=== PATIENT | male | born 1935 | race Caucasian/White ===

== ENCOUNTER 2018-10-20 11:00 | Outpatient (RCR) | payer MEDICARE, OTHER, SELFPAY ==
[2018-09-29 10:53] VITALS: BP 99/57; PULSE 57; RESP 20; TEMP 36.3; BMI 33.7
--- NOTE | 2018-09-29 12:31 | PCM.WC.HP ---
(1) Open wound of left knee Status: Acute Current Visit: Yes Code(s): S81.002A - Unspecified open wound, left knee, initial encounter (2) Wound of left leg Status: Acute Current Visit: Yes Code(s): S81.802A - Unspecified open wound, left lower leg, initial encounter (3) Open wound of left ankle Status: Acute Current Visit: Yes Code(s): S91.002A - Unspecified open wound, left ankle, initial encounter (4) Superficial burn Status: Acute Current Visit: Yes Code(s): T30.0 - Burn of unspecified body region, unspecified degree (5) Bilateral lower extremity edema Status: Chronic Current Visit: Yes Code(s): R60.0 - Localized edema (6) CHF (congestive heart failure) Status: Chronic Current Visit: Yes Code(s): I50.9 - Heart failure, unspecified (7) Peripheral vascular disease Status: Acute Current Visit: Yes Code(s): I73.9 - Peripheral vascular disease, unspecified History of Present Illness Date of Service: 09/29/18 Chief Complaint: Wounds on left lower extremity caused from spilling hot water down leg. History of Wound: Three weeks ago patient spilled hot water down his left leg. He lives in an assisted living facility, [facility], that he needs to do his own wound care. [facility] but according to the aid who is with the patient she states the patient has done nothing to the wounds. His PCP saw him on 09/22/18 who referred him to the wound clinic. Patient does have a significant history of CHF and has +3-+4 pitting edema of bilateral lower extremities. Past Medical History Past Medical History: Chronic Problems CHF (congestive heart failure) (Chronic) Bilateral lower extremity edema (Chronic) Past Medical History: Hyperlipidemia, hypothyroidism, generalized seizure disorder, cardiomyopathy, HTN, CAD, adenocarcinoma, colon, DVT, lower extremity edema Allergies/Adverse Reactions: Allergies shellfish derived Allergy (Verified 11/03/13 11:27) Anaphylaxis Home Medications: Ambulatory Orders Medication Instructions Recorded Amiodarone HCl 200 mg PO DAILY 11/03/13 Aspirin E.C. [Ecotrin] 81 mg PO DAILY@0800 11/03/13 Furosemide [Lasix] 40 mg PO DAILY 11/03/13 Levetiracetam 500 mg PO BID 11/03/13 Lisinopril [Zestril] 5 mg PO DAILY 11/03/13 Oxcarbazepine [Trileptal] 600 mg PO BID 11/03/13 Ropinirole HCl [Requip] 0.25 mg PO QHS 11/03/13 Spironolactone [Aldactone] 12.5 mg PO DAILY 11/03/13 Tamsulosin HCl [Flomax] 0.4 mg PO DAILY 11/03/13 L. Acidophilus/Pectin, [place] 1 each PO BID #10 tablet 11/19/13 [Acidophilus-Pectin [place]] Acetaminophen [Tylenol Extra 1,000 mg PO Q6H PRN PRN 09/29/18 Strength] Brimonidine Tartrate 0.2% 1 drop EACH EYE BID 09/29/18 [Brimonidine 0.2% 5Ml Bottle] Cholecalciferol (Vitamin D3) 2,000 unit PO DAILY 09/29/18 [Vitamin D3] Ferrous Sulfate 325 mg PO DAILY 09/29/18 Fluticasone 0.05% [Flonase Nasal 2 spray NASAL DAILY 09/29/18 [place]] Furosemide [Lasix] 20 mg PO DINNER 09/29/18 Gabapentin [Neurontin] 300 mg PO TIDCM 09/29/18 Gluc/Chondr-MSM 7/C/[place] 1 each PO DAILY 09/29/18 [Eql Glucosam-Chondro Complx Tb] Latanoprost 0.005% [Xalatan 1 drop EACH EYE QHS 09/29/18 Opthalmic] Levothyroxine [Synthroid] 75 mcg PO DAILY 09/29/18 Metoprolol Tartrate 12.5 mg PO DAILY 09/29/18 Potassium Chloride [K-Dur] 20 meq PO DAILY 09/29/18 Psyllium [Metamucil] 1 packet PO DAILY 09/29/18 Rivaroxaban [Xarelto] 20 mg PO DAILY 09/29/18 Timolol 0.5% [Timoptic] 1 drop EACH EYE BID 09/29/18 Lives: [facility] - assisted living Smoking Status: Never smoker Tobacco Use: Non-smoker Alcohol: None Drugs: None Review of Systems Constitutional: Denies: Anorexia, Chills, Fever Eyes: Denies: Pain, Vision Change HEENT: Denies: Difficulty Hearing, Difficulty Swallowing, Sinus Congestion Cardiovascular: Reports: Edema. Denies: Chest Pain Respiratory: Reports: Cough. Denies: Shortness of Breath Gastrointestinal: Denies: Diarrhea, Nausea, Vomiting Genitourinary: Denies: Dysuria, Hematuria Musculoskeletal: Denies: Joint stiffness, Joint swelling, Joint Tenderness Skin: Reports: Lesions - Left knee, left anterior lower leg and left ankle wounds caused by spilling hot water down his leg Neurological: Reports: Seizures Psychiatric: Denies: Anxiety Endocrine: Denies: Heat/ Cold Intolerance, Polydipsia, Polyuria Hematologic/ Lymphatic: Reports: Easy Bruising - on Xarelto for DVTs, Easy Bleeding - Physical Exam Vital Signs Temp Pulse Resp BP 97.3 F L 57 L 20 H 99/57 L 09/29/18 10:53 09/29/18 10:53 09/29/18 10:53 09/29/18 10:53 General: Alert, Oriented x3 HEENT: Atraumatic, PERRLA Oral: Moist Mucosa Lungs: No wheeze, - - moist cough Cardiovascular: Regular rate, Regular Rhythm Abdomen: Bowel Sounds Present, Soft, Obese Extremities: Capillary Refill Less than 3 Seconds, Diminished Peripheral Pulses, Edema - +3-+4 pitting edema Skin: Ulcer/ Wound - left knee, left anterior lower leg and left ankle wounds, - - Bilateral lower legs with brown discoloration of skin Wound Measurements and Assessment WC - Nurse 1 - General Ulcer Measurement Start: 09/29/18 10:53 Freq: Status: Active Protocol: Activity Type Activity Date Activity User E-Sign Co-Sign Detail Recorded Client Recorded Date Recorded By Document 09/29/18 10:53 [id number] 09/29/18 11:08 DL 09/29/18 10:53 Wound Center Nurse 1 [Ulcer Assessment] #3 L ANt ankle -Current Size (cm) - Length 2.2 -Current Size (cm) - Width 3.4 -Current Size (cm) - Depth 0.1 -Total Square Cm 7.48 -Photo Taken Yes -Classification - Thickness Unclassifiable (Eschar Covered ) -Exudate Amt None Present -Wound Margin Thickened -Granulation Amt None Present (0 %) -Necrosis Amt Large (67-100%) -Necrotic Tissue Type Eschar -Structure Exposed N/A -Texture (Mer-wound Skin Appearance) Localized Edema Scarring -Moisture (Mer-wound Skin Appearance Dry/Scaly ) -Color (Mer-wound Skin Appearance) Erythema Hemosiderin Staining -Temperature (Mer-wound Skin No Abnormality Appearance) (Pt Warm) -Tenderness on Palpation (Mer-wound No Skin Appearance) -Ulcer Cleansing Wound Cleanser -Foul Odor after Cleansing No -Anesthetic Used 4% Lidocaine Solution #2 L Evans -Current Size (cm) - Length 3.2 -Current Size (cm) - Width 1.1 -Current Size (cm) - Depth 0.1 -Total Square Cm 3.52 -Photo Taken Yes -Classification - Thickness Full Thickness without Exposed Support Structure -Exudate Amt Small -Exudate Type Serosanguineous -Wound Margin Distinct, Outline Attached -Granulation Amt Medium (34-66%) -Granulation Quality Hyper- granulation Red -Necrosis Amt Medium (34-66%) -Necrotic Tissue Type Adherent Slough -Structure Exposed N/A -Texture (Mer-wound Skin Appearance) Localized Edema Scarring -Moisture (Mer-wound Skin Appearance Dry/Scaly ) -Color (Mer-wound Skin Appearance) Erythema Hemosiderin Staining -Temperature (Mer-wound Skin No Abnormality Appearance) (Pt Warm) -Tenderness on Palpation (Mer-wound No Skin Appearance) -Ulcer Cleansing Wound Cleanser -Foul Odor after Cleansing No -Anesthetic Used 4% Lidocaine Solution #1 L Knee -Current Size (cm) - Length 4.4 -Current Size (cm) - Width 2 -Current Size (cm) - Depth 0.1 -Total Square Cm 8.8 -Photo Taken Yes -Classification - Thickness Full Thickness without Exposed Support Structure -Exudate Amt None Present -Wound Margin Distinct, Outline Attached -Granulation Amt Medium (34-66%) -Granulation Quality Red -Necrosis Amt Medium (34-66%) -Necrotic Tissue Type Adherent Slough -Structure Exposed N/A -Texture (Mer-wound Skin Appearance) Localized Edema Scarring -Moisture (Mer-wound Skin Appearance Dry/Scaly ) -Color (Mer-wound Skin Appearance) Erythema Hemosiderin Staining -Temperature (Mer-wound Skin No Abnormality Appearance) (Pt Warm) -Tenderness on Palpation (Mer-wound No Skin Appearance) -Ulcer Cleansing Wound Cleanser -Foul Odor after Cleansing No -Anesthetic Used 4% Lidocaine Solution [Edema Assessment] -Right Calf (cm) 39.9 -Right Ankle (cm) 31.4 -Left Calf (cm) 46.5 -Left Ankle (cm) 31.5 WC - Nurse 2 - General Ulcer CM Notes Start: 09/29/18 10:53 Freq: Status: Active Protocol: Activity Type Activity Date Activity User E-Sign Co-Sign Detail Recorded Client Recorded Date Recorded By Document 09/29/18 11:49 [email or web address] [id number] 09/29/18 11:59 RUPINDER 09/29/18 11:49 Wound Center Nurse 2 [Procedure/Treatment] #3 L ANt ankle -Time 11:55 -Correct Patient Yes -Correct Side, Site, Position Yes -Correct Procedure Yes -Procedure Performed Yes -Type of Procedure Debridement -Clinical Debridement Subcutaneous -Post Debridement Size (cm) - Length 2.4 -Post Debridement Size (cm) - Width 3.5 -Post Debridement Size (cm) - Depth 0.2 -Total Square Cm 8.40 -Wound/Ulcer Outcome Not Healed -Ulcer Cleansing Rinsed/ Irrigated with Saline -Foul Odor after Cleansing No -Bioengineered Tissue No -Bleeding Controlled with Pressure -Offloading No -Treatment Response Procedure Tolerated Well #2 L Evans -Time 11:53 -Correct Patient Yes -Correct Side, Site, Position Yes -Correct Procedure Yes -Procedure Performed Yes -Type of Procedure Debridement -Clinical Debridement Subcutaneous -Post Debridement Size (cm) - Length 3.3 -Post Debridement Size (cm) - Width 1.7 -Post Debridement Size (cm) - Depth 0.1 -Total Square Cm 5.61 -Wound/Ulcer Outcome Not Healed -Ulcer Cleansing Rinsed/ Irrigated with Saline -Foul Odor after Cleansing No -Bioengineered Tissue No -Bleeding Controlled with Pressure -Offloading No -Treatment Response Procedure Tolerated Well #1 L Knee -Time 11:55 -Correct Patient Yes -Correct Side, Site, Position Yes -Correct Procedure Yes -Procedure Performed Yes -Type of Procedure Debridement -Clinical Debridement Subcutaneous -Post Debridement Size (cm) - Length 5.0 -Post Debridement Size (cm) - Width 2.3 -Post Debridement Size (cm) - Depth 0.1 -Total Square Cm 11.50 -Wound/Ulcer Outcome Not Healed -Ulcer Cleansing Rinsed/ Irrigated with Saline -Foul Odor after Cleansing No -Bioengineered Tissue No -Bleeding Controlled with Pressure -Offloading No -Treatment Response Procedure Tolerated Well [See Physician Procedure note for Specifics] Pain Scale: 0-10 Numeric [Pain] -Is Patient Pain Free? Yes Musculoskeletal: No Tenderness to Palpation of Joints or Extremities Neurological: Neuro grossly intact Psych/Mental Status: Normal Affect, Appropriate Debridement Note Post-Debridement Measurements/Treatment WC - Nurse 2 - General Ulcer CM Notes Start: 09/29/18 10:53 Freq: Status: Active Protocol: Activity Type Activity Date Activity User E-Sign Co-Sign Detail Recorded Client Recorded Date Recorded By Document 09/29/18 11:49 [id number] 09/29/18 11:59 RUPINDER 09/29/18 11:49 Wound Center Nurse 2 #3 L ANt ankle -Time 11:55 -Correct Patient Yes -Correct Side, Site, Position Yes -Correct Procedure Yes -Procedure Performed Yes -Type of Procedure Debridement -Clinical Debridement Subcutaneous -Post Debridement Size (cm) - Length 2.4 -Post Debridement Size (cm) - Width 3.5 -Post Debridement Size (cm) - Depth 0.2 -Total Square Cm 8.40 -Wound/Ulcer Outcome Not Healed -Ulcer Cleansing Rinsed/ Irrigated with Saline -Foul Odor after Cleansing No -Bioengineered Tissue No -Bleeding Controlled with Pressure -Offloading No -Treatment Response Procedure Tolerated Well #2 L Evans -Time 11:53 -Correct Patient Yes -Correct Side, Site, Position Yes -Correct Procedure Yes -Procedure Performed Yes -Type of Procedure Debridement -Clinical Debridement Subcutaneous -Post Debridement Size (cm) - Length 3.3 -Post Debridement Size (cm) - Width 1.7 -Post Debridement Size (cm) - Depth 0.1 -Total Square Cm 5.61 -Wound/Ulcer Outcome Not Healed -Ulcer Cleansing Rinsed/ Irrigated with Saline -Foul Odor after Cleansing No -Bioengineered Tissue No -Bleeding Controlled with Pressure -Offloading No -Treatment Response Procedure Tolerated Well #1 L Knee -Time 11:55 -Correct Patient Yes -Correct Side, Site, Position Yes -Correct Procedure Yes -Procedure Performed Yes -Type of Procedure Debridement -Clinical Debridement Subcutaneous -Post Debridement Size (cm) - Length 5.0 -Post Debridement Size (cm) - Width 2.3 -Post Debridement Size (cm) - Depth 0.1 -Total Square Cm 11.50 -Wound/Ulcer Outcome Not Healed -Ulcer Cleansing Rinsed/ Irrigated with Saline -Foul Odor after Cleansing No -Bioengineered Tissue No -Bleeding Controlled with Pressure -Offloading No -Treatment Response Procedure Tolerated Well Pain Scale: 0-10 Numeric Is Patient Pain Free? Yes Wound debrided: Left knee Laterality: Left Type of Debridement: Excisional debridement Anesthesia Used: 5% Lidocaine Gel Depth: Down to and including healthy tissue, in the subcutaneous layer Percentage of wound debrided: 100 Instrument Used: 5mm curette Tissue Removed: Subcutaneous tissue and slough Severity: Fat Layer Exposed Amount of bleeding with debridement: Mild Bleeding Controlled with: Pressure Patient tolerated procedure well - Additional Wound Wound debrided: Left anterior lower leg Laterality: Left Type of Debridement: Excisional debridement Anesthesia Used: 5% Lidocaine Gel Depth: Down to and including healthy tissue, in the subcutaneous layer Percentage of wound debrided: 100 Instrument Used: 5mm curette Tissue Removed: Slough and biofilm- large amount of hypergranulation tissue Severity: Fat Layer Exposed Amount of bleeding with debridement: Mild Bleeding Controlled with: Pressure Patient tolerated procedure: Patient tolerated procedure well - Additional Wound Wound debrided: Left ankle Laterality: Left Type of Debridement: Excisional debridement Anesthesia Used: 5% Lidocaine Gel Depth: Down to and including healthy tissue, in the subcutaneous layer Percentage of wound debrided: 100 Instrument Used: 5mm curette Tissue Removed: Subcutaneous tissue and slough- significant amount of eschar Severity: Limited To Skin Breakdown Amount of bleeding with debridement: Mild Bleeding Controlled with: Pressure Patient tolerated procedure: Patient tolerated procedure well Assessment/Plan Active Problems Open wound of left knee (Acute) Wound of left leg (Acute) Open wound of left ankle (Acute) CHF (congestive heart failure) (Chronic) Peripheral vascular disease (Acute) Bilateral lower extremity edema (Chronic) Superficial burn (Acute) Assessment: 1. Open wound of left ankle. 2. Open wound of left knee. 3. Wound of left leg. 4. Superficial burn. 5. CHF (congestive heart failure). 6. Bilateral lower extremity edema. 7. Peripheral vascular disease Plan: Patient was seen and evaluated in the wound center today. He had a subcutaneous debridement of his three wounds today and tolerated the proceedure well. The ankle wound has a significant amount of eschar that is not able to be debrided. He has hypergranulation to the left lower leg. Will order santyl to all the wounds daily. Patient lives in an assisted living and they have home health who can assist the patient with his wounds. Will order both venous and arterial studies. Will apply one layer of tubigrip to help with edema until vascular study results are seen. Patient has significant amount of +4 pitting edema. He states he does sit all day with feet dangling. Instructed him that he needs to elevate feet at least twice a day for 30 minutes at time. Also encouraged patient to cut back on his sodium intake. Since he lives in assisted living, he does not have control over his diet. Will also obtain a wound culture of the left knee open area since there is redness and swelling surrounding this area. He will follow up in one week. Code Visit Office Visits / Consults: [id number] OV L4 Est - modifier 25 [id number]: [id number] Huong subq tissue 20 sq cm/< Add On Codes: 45264 Huong subq tissue add-on - x1
--- NOTE | 2018-09-29 12:35 | HP.PCM_ITS ---
(1) Open wound of left knee Status: Acute Current Visit: Yes Code(s): S81.002A - Unspecified open wound, left knee, initial encounter (2) Wound of left leg Status: Acute Current Visit: Yes Code(s): S81.802A - Unspecified open wound, left lower leg, initial encounter (3) Open wound of left ankle Status: Acute Current Visit: Yes Code(s): S91.002A - Unspecified open wound, left ankle, initial encounter (4) Superficial burn Status: Acute Current Visit: Yes Code(s): T30.0 - Burn of unspecified body region, unspecified degree (5) Bilateral lower extremity edema Status: Chronic Current Visit: Yes Code(s): R60.0 - Localized edema (6) CHF (congestive heart failure) Status: Chronic Current Visit: Yes Code(s): I50.9 - Heart failure, unspecified (7) Peripheral vascular disease Status: Acute Current Visit: Yes Code(s): I73.9 - Peripheral vascular disease, unspecified History of Present Illness Date of Service: 09/29/18 Chief Complaint: Wounds on left lower extremity caused from spilling hot water down leg. History of Wound: Three weeks ago patient spilled hot water down his left leg. He lives in an assisted living facility, [place], that he needs to do his own wound care. His PCP phoned in [facility] on 09/15 but according to the aid who is with the patient she states the patient has done nothing to the wounds. His PCP saw him on 09/22/18 who referred him to the wound clinic. Patient does have a significant history of CHF and has +3-+4 pitting edema of bilateral lower extremities. Past Medical History Past Medical History: Chronic Problems CHF (congestive heart failure) (Chronic) Bilateral lower extremity edema (Chronic) Past Medical History: Hyperlipidemia, hypothyroidism, generalized seizure disorder, cardiomyopathy, HTN, CAD, adenocarcinoma, colon, DVT, lower extremity edema Allergies/Adverse Reactions: Allergies shellfish derived Allergy (Verified 11/03/13 11:27) Anaphylaxis Home Medications: Ambulatory Orders Medication Instructions Recorded Amiodarone HCl 200 mg PO DAILY 11/03/13 Aspirin E.C. [Ecotrin] 81 mg PO DAILY@0800 11/03/13 Furosemide [Lasix] 40 mg PO DAILY 11/03/13 Levetiracetam 500 mg PO BID 11/03/13 Lisinopril [Zestril] 5 mg PO DAILY 11/03/13 Oxcarbazepine [Trileptal] 600 mg PO BID 11/03/13 Ropinirole HCl [Requip] 0.25 mg PO QHS 11/03/13 Spironolactone [Aldactone] 12.5 mg PO DAILY 11/03/13 Tamsulosin HCl [Flomax] 0.4 mg PO DAILY 11/03/13 L. Acidophilus/Pectin, [place] 1 each PO BID #10 tablet 11/19/13 [Acidophilus-Pectin Captab] Acetaminophen [Tylenol Extra 1,000 mg PO Q6H PRN PRN 09/29/18 Strength] Brimonidine Tartrate 0.2% 1 drop EACH EYE BID 09/29/18 [Brimonidine 0.2% 5Ml Bottle] Cholecalciferol (Vitamin D3) 2,000 unit PO DAILY 09/29/18 [Vitamin D3] Ferrous Sulfate 325 mg PO DAILY 09/29/18 Fluticasone 0.05% [Flonase Nasal 2 spray NASAL DAILY 09/29/18 [place]] Furosemide [Lasix] 20 mg PO DINNER 09/29/18 Gabapentin [Neurontin] 300 mg PO TIDCM 09/29/18 Gluc/Chondr-MSM 7/C/[place] 1 each PO DAILY 09/29/18 [Eql Glucosam-Chondro Complx Tb] Latanoprost 0.005% [Xalatan 1 drop EACH EYE QHS 09/29/18 Opthalmic] Levothyroxine [Synthroid] 75 mcg PO DAILY 09/29/18 Metoprolol Tartrate 12.5 mg PO DAILY 09/29/18 Potassium Chloride [K-Dur] 20 meq PO DAILY 09/29/18 Psyllium [Metamucil] 1 packet PO DAILY 09/29/18 Rivaroxaban [Xarelto] 20 mg PO DAILY 09/29/18 Timolol 0.5% [Timoptic] 1 drop EACH EYE BID 09/29/18 Lives: [facility] living Smoking Status: Never smoker Tobacco Use: Non-smoker Alcohol: None Drugs: None Review of Systems Constitutional: Denies: Anorexia, Chills, Fever Eyes: Denies: Pain, Vision Change HEENT: Denies: Difficulty Hearing, Difficulty Swallowing, Sinus Congestion Cardiovascular: Reports: Edema. Denies: Chest Pain Respiratory: Reports: Cough. Denies: Shortness of Breath Gastrointestinal: Denies: Diarrhea, Nausea, Vomiting Genitourinary: Denies: Dysuria, Hematuria Musculoskeletal: Denies: Joint stiffness, Joint swelling, Joint Tenderness Skin: Reports: Lesions - Left knee, left anterior lower leg and left ankle wounds caused by spilling hot water down his leg Neurological: Reports: Seizures Psychiatric: Denies: Anxiety Endocrine: Denies: Heat/ Cold Intolerance, Polydipsia, Polyuria Hematologic/ Lymphatic: Reports: Easy Bruising - on Xarelto for DVTs, Easy Bleeding - Physical Exam Vital Signs Temp Pulse Resp BP 97.3 F L 57 L 20 H 99/57 L 09/29/18 10:53 09/29/18 10:53 09/29/18 10:53 09/29/18 10:53 General: Alert, Oriented x3 HEENT: Atraumatic, PERRLA Oral: Moist Mucosa Lungs: No wheeze, - - moist cough Cardiovascular: Regular rate, Regular Rhythm Abdomen: Bowel Sounds Present, Soft, Obese Extremities: Capillary Refill Less than 3 Seconds, Diminished Peripheral Pulses, Edema - +3-+4 pitting edema Skin: Ulcer/ Wound - left knee, left anterior lower leg and left ankle wounds, - - Bilateral lower legs with brown discoloration of skin Wound Measurements and Assessment WC - Nurse 1 - General Ulcer Measurement Start: 09/29/18 10:53 Freq: Status: Active Protocol: Activity Type Activity Date Activity User E-Sign Co-Sign Detail Recorded Client Recorded Date Recorded By Document 09/29/18 10:53 [id number] 09/29/18 11:08 DL 09/29/18 10:53 Wound Center Nurse 1 [Ulcer Assessment] #3 L ANt ankle -Current Size (cm) - Length 2.2 -Current Size (cm) - Width 3.4 -Current Size (cm) - Depth 0.1 -Total Square Cm 7.48 -Photo Taken Yes -Classification - Thickness Unclassifiable (Eschar Covered ) -Exudate Amt None Present -Wound Margin Thickened -Granulation Amt None Present (0 %) -Necrosis Amt Large (67-100%) -Necrotic Tissue Type Eschar -Structure Exposed N/A -Texture (Mer-wound Skin Appearance) Localized Edema Scarring -Moisture (Mer-wound Skin Appearance Dry/Scaly ) -Color (Mer-wound Skin Appearance) Erythema Hemosiderin Staining -Temperature (Mer-wound Skin No Abnormality Appearance) (Pt Warm) -Tenderness on Palpation (Mer-wound No Skin Appearance) -Ulcer Cleansing Wound Cleanser -Foul Odor after Cleansing No -Anesthetic Used 4% Lidocaine Solution #2 L Evans -Current Size (cm) - Length 3.2 -Current Size (cm) - Width 1.1 -Current Size (cm) - Depth 0.1 -Total Square Cm 3.52 -Photo Taken Yes -Classification - Thickness Full Thickness without Exposed Support Structure -Exudate Amt Small -Exudate Type Serosanguineous -Wound Margin Distinct, Outline Attached -Granulation Amt Medium (34-66%) -Granulation Quality Hyper- granulation Red -Necrosis Amt Medium (34-66%) -Necrotic Tissue Type Adherent Slough -Structure Exposed N/A -Texture (Mer-wound Skin Appearance) Localized Edema Scarring -Moisture (Mer-wound Skin Appearance Dry/Scaly ) -Color (Mer-wound Skin Appearance) Erythema Hemosiderin Staining -Temperature (Mer-wound Skin No Abnormality Appearance) (Pt Warm) -Tenderness on Palpation (Mer-wound No Skin Appearance) -Ulcer Cleansing Wound Cleanser -Foul Odor after Cleansing No -Anesthetic Used 4% Lidocaine Solution #1 L Knee -Current Size (cm) - Length 4.4 -Current Size (cm) - Width 2 -Current Size (cm) - Depth 0.1 -Total Square Cm 8.8 -Photo Taken Yes -Classification - Thickness Full Thickness without Exposed Support Structure -Exudate Amt None Present -Wound Margin Distinct, Outline Attached -Granulation Amt Medium (34-66%) -Granulation Quality Red -Necrosis Amt Medium (34-66%) -Necrotic Tissue Type Adherent Slough -Structure Exposed N/A -Texture (Mer-wound Skin Appearance) Localized Edema Scarring -Moisture (Mer-wound Skin Appearance Dry/Scaly ) -Color (Mer-wound Skin Appearance) Erythema Hemosiderin Staining -Temperature (Mer-wound Skin No Abnormality Appearance) (Pt Warm) -Tenderness on Palpation (Mer-wound No Skin Appearance) -Ulcer Cleansing Wound Cleanser -Foul Odor after Cleansing No -Anesthetic Used 4% Lidocaine Solution [Edema Assessment] -Right Calf (cm) 39.9 -Right Ankle (cm) 31.4 -Left Calf (cm) 46.5 -Left Ankle (cm) 31.5 WC - Nurse 2 - General Ulcer CM Notes Start: 09/29/18 10:53 Freq: Status: Active Protocol: Activity Type Activity Date Activity User E-Sign Co-Sign Detail Recorded Client Recorded Date Recorded By Document 09/29/18 11:49 [email or web address] [id number] 09/29/18 11:59 RUPINDER 09/29/18 11:49 Wound Center Nurse 2 [Procedure/Treatment] #3 L ANt ankle -Time 11:55 -Correct Patient Yes -Correct Side, Site, Position Yes -Correct Procedure Yes -Procedure Performed Yes -Type of Procedure Debridement -Clinical Debridement Subcutaneous -Post Debridement Size (cm) - Length 2.4 -Post Debridement Size (cm) - Width 3.5 -Post Debridement Size (cm) - Depth 0.2 -Total Square Cm 8.40 -Wound/Ulcer Outcome Not Healed -Ulcer Cleansing Rinsed/ Irrigated with Saline -Foul Odor after Cleansing No -Bioengineered Tissue No -Bleeding Controlled with Pressure -Offloading No -Treatment Response Procedure Tolerated Well #2 L Evans -Time 11:53 -Correct Patient Yes -Correct Side, Site, Position Yes -Correct Procedure Yes -Procedure Performed Yes -Type of Procedure Debridement -Clinical Debridement Subcutaneous -Post Debridement Size (cm) - Length 3.3 -Post Debridement Size (cm) - Width 1.7 -Post Debridement Size (cm) - Depth 0.1 -Total Square Cm 5.61 -Wound/Ulcer Outcome Not Healed -Ulcer Cleansing Rinsed/ Irrigated with Saline -Foul Odor after Cleansing No -Bioengineered Tissue No -Bleeding Controlled with Pressure -Offloading No -Treatment Response Procedure Tolerated Well #1 L Knee -Time 11:55 -Correct Patient Yes -Correct Side, Site, Position Yes -Correct Procedure Yes -Procedure Performed Yes -Type of Procedure Debridement -Clinical Debridement Subcutaneous -Post Debridement Size (cm) - Length 5.0 -Post Debridement Size (cm) - Width 2.3 -Post Debridement Size (cm) - Depth 0.1 -Total Square Cm 11.50 -Wound/Ulcer Outcome Not Healed -Ulcer Cleansing Rinsed/ Irrigated with Saline -Foul Odor after Cleansing No -Bioengineered Tissue No -Bleeding Controlled with Pressure -Offloading No -Treatment Response Procedure Tolerated Well [See Physician Procedure note for Specifics] Pain Scale: 0-10 Numeric [Pain] -Is Patient Pain Free? Yes Musculoskeletal: No Tenderness to Palpation of Joints or Extremities Neurological: Neuro grossly intact Psych/Mental Status: Normal Affect, Appropriate Debridement Note Post-Debridement Measurements/Treatment WC - Nurse 2 - General Ulcer CM Notes Start: 09/29/18 10:53 Freq: Status: Active Protocol: Activity Type Activity Date Activity User E-Sign Co-Sign Detail Recorded Client Recorded Date Recorded By Document 09/29/18 11:49 [id number] 09/29/18 11:59 RUPINDER 09/29/18 11:49 Wound Center Nurse 2 #3 L ANt ankle -Time 11:55 -Correct Patient Yes -Correct Side, Site, Position Yes -Correct Procedure Yes -Procedure Performed Yes -Type of Procedure Debridement -Clinical Debridement Subcutaneous -Post Debridement Size (cm) - Length 2.4 -Post Debridement Size (cm) - Width 3.5 -Post Debridement Size (cm) - Depth 0.2 -Total Square Cm 8.40 -Wound/Ulcer Outcome Not Healed -Ulcer Cleansing Rinsed/ Irrigated with Saline -Foul Odor after Cleansing No -Bioengineered Tissue No -Bleeding Controlled with Pressure -Offloading No -Treatment Response Procedure Tolerated Well #2 L Evans -Time 11:53 -Correct Patient Yes -Correct Side, Site, Position Yes -Correct Procedure Yes -Procedure Performed Yes -Type of Procedure Debridement -Clinical Debridement Subcutaneous -Post Debridement Size (cm) - Length 3.3 -Post Debridement Size (cm) - Width 1.7 -Post Debridement Size (cm) - Depth 0.1 -Total Square Cm 5.61 -Wound/Ulcer Outcome Not Healed -Ulcer Cleansing Rinsed/ Irrigated with Saline -Foul Odor after Cleansing No -Bioengineered Tissue No -Bleeding Controlled with Pressure -Offloading No -Treatment Response Procedure Tolerated Well #1 L Knee -Time 11:55 -Correct Patient Yes -Correct Side, Site, Position Yes -Correct Procedure Yes -Procedure Performed Yes -Type of Procedure Debridement -Clinical Debridement Subcutaneous -Post Debridement Size (cm) - Length 5.0 -Post Debridement Size (cm) - Width 2.3 -Post Debridement Size (cm) - Depth 0.1 -Total Square Cm 11.50 -Wound/Ulcer Outcome Not Healed -Ulcer Cleansing Rinsed/ Irrigated with Saline -Foul Odor after Cleansing No -Bioengineered Tissue No -Bleeding Controlled with Pressure -Offloading No -Treatment Response Procedure Tolerated Well Pain Scale: 0-10 Numeric Is Patient Pain Free? Yes Wound debrided: Left knee Laterality: Left Type of Debridement: Excisional debridement Anesthesia Used: 5% Lidocaine Gel Depth: Down to and including healthy tissue, in the subcutaneous layer Percentage of wound debrided: 100 Instrument Used: 5mm curette Tissue Removed: Subcutaneous tissue and slough Severity: Fat Layer Exposed Amount of bleeding with debridement: Mild Bleeding Controlled with: Pressure Patient tolerated procedure well - Additional Wound Wound debrided: Left anterior lower leg Laterality: Left Type of Debridement: Excisional debridement Anesthesia Used: 5% Lidocaine Gel Depth: Down to and including healthy tissue, in the subcutaneous layer Percentage of wound debrided: 100 Instrument Used: 5mm curette Tissue Removed: Slough and biofilm- large amount of hypergranulation tissue Severity: Fat Layer Exposed Amount of bleeding with debridement: Mild Bleeding Controlled with: Pressure Patient tolerated procedure: Patient tolerated procedure well - Additional Wound Wound debrided: Left ankle Laterality: Left Type of Debridement: Excisional debridement Anesthesia Used: 5% Lidocaine Gel Depth: Down to and including healthy tissue, in the subcutaneous layer Percentage of wound debrided: 100 Instrument Used: 5mm curette Tissue Removed: Subcutaneous tissue and slough- significant amount of eschar Severity: Limited To Skin Breakdown Amount of bleeding with debridement: Mild Bleeding Controlled with: Pressure Patient tolerated procedure: Patient tolerated procedure well Assessment/Plan Active Problems Open wound of left knee (Acute) Wound of left leg (Acute) Open wound of left ankle (Acute) CHF (congestive heart failure) (Chronic) Peripheral vascular disease (Acute) Bilateral lower extremity edema (Chronic) Superficial burn (Acute) Assessment: 1. Open wound of left ankle. 2. Open wound of left knee. 3. Wound of left leg. 4. Superficial burn. 5. CHF (congestive heart failure). 6. B ilateral lower extremity edema. 7. Peripheral vascular disease Plan: Patient was seen and evaluated in the wound center today. He had a subcutaneous debridement of his three wounds today and tolerated the proceedure well. The ankle wound has a significant amount of eschar that is not able to be debrided. He has hypergranulation to the left lower leg. Will order santyl to all the wounds daily. Patient lives in an assisted living and they have home health who can assist the patient with his wounds. Will order both venous and arterial studies. Will apply one layer of tubigrip to help with edema until vascular study results are seen. Patient has significant amount of +4 pitting edema. He states he does sit all day with feet dangling. Instructed him that he needs to elevate feet at least twice a day for 30 minutes at time. Also encouraged patient to cut back on his sodium intake. Since he lives in assisted living, he does not have control over his diet. Will also obtain a wound culture of the left knee open area since there is redness and swelling surrounding this area. He will follow up in one week. Code Visit Office Visits / Consults: [id number] OV L4 Est - modifier 25 [id number]: [id number] Huong subq tissue 20 sq cm/< Add On Codes: 38947 Huong subq tissue add-on - x1
[2018-10-06 09:39] VITALS: BP 109/56; PULSE 59; RESP 18; TEMP 36.7; BMI 33.7
--- NOTE | 2018-10-07 09:49 | PN.PCM_ITS ---
(1) Open wound of left knee Status: Acute Current Visit: Yes Code(s): S81.002A - Unspecified open wound, left knee, initial encounter (2) Wound of left leg Status: Acute Current Visit: Yes Code(s): S81.802A - Unspecified open wound, left lower leg, initial encounter (3) Open wound of left ankle Status: Acute Current Visit: Yes Code(s): S91.002A - Unspecified open wound, left ankle, initial encounter (4) Superficial burn Status: Acute Current Visit: Yes Code(s): T30.0 - Burn of unspecified body region, unspecified degree (5) Bilateral lower extremity edema Status: Chronic Current Visit: Yes Code(s): R60.0 - Localized edema (6) CHF (congestive heart failure) Status: Chronic Current Visit: Yes Code(s): I50.9 - Heart failure, unspecified (7) Peripheral vascular disease Status: Acute Current Visit: Yes Code(s): I73.9 - Peripheral vascular disease, unspecified Type of Wound Date of Service: 10/06/18 Chief Complaint: Wounds on left lower extremity caused from spilling hot water down leg. History of Wound: Three weeks ago patient spilled hot water down his left leg. He lives in an assisted living facility, [place], that he needs to do his own wound care. [email or web address] but according to the aid who is with the patient she states the patient has done nothing to the wounds. His PCP saw him on 09/22/18 who referred him to the wound clinic. Patient does have a significant history of CHF and has +3-+4 pitting edema of bilateral lower extremities. Wound care is Santyl Progress of Wound: Slightly improved. - Physical Exam Vital Signs Temp Pulse Resp BP 98.1 F 59 L 18 109/56 L 10/06/18 09:39 10/06/18 09:39 10/06/18 09:39 10/06/18 09:39 General: Alert, Oriented x3, Cooperative HEENT: Atraumatic Oral: Moist Mucosa Lungs: Normal air movement Cardiovascular: Regular rate Extremities: Diminished Peripheral Pulses, Edema - +3, Mild improvement compared to last week. Skin: Ulcer/ Wound - Left knee, left anterior lower leg and left ankle Wound Measurements and Assessment WC - Nurse 1 - General Ulcer Measurement Start: 09/29/18 10:53 Freq: Status: Active Protocol: Activity Type Activity Date Activity User E-Sign Co-Sign Detail Recorded Client Recorded Date Recorded By Document 10/06/18 09:39 DV [id number] 10/06/18 09:44 DV 10/06/18 09:39 Wound Center Nurse 1 [Ulcer Assessment] #3 L ANt ankle -Combined with other wound No -Current Size (cm) - Length 2.3 -Current Size (cm) - Width 3.1 -Current Size (cm) - Depth 0.1 -Total Square Cm 7.13 -Photo Taken No -Epithelialization None Present -Tunneling No -Undermining/Tunneling No -Circular Undermining No -Classification - Thickness Full Thickness without Exposed Support Structure -Exudate Amt Medium -Exudate Type Serosanguineous -Wound Margin Flat & Intact -Granulation Amt None Present (0 %) -Granulation Quality N/A -Slough/Fibrin Yes -Necrosis Amt Large (67-100%) -Necrotic Tissue Type Adherent Slough -Structure Exposed None/Limited to Skin Breakdown -Texture (Mer-wound Skin Appearance) Assessed Localized Edema Scarring -Moisture (Mer-wound Skin Appearance Assessed ) Weeping -Color (Mer-wound Skin Appearance) Assessed Erythema Hemosiderin Staining -Temperature (Mer-wound Skin No Abnormality Appearance) (Pt Warm) -Tenderness on Palpation (Mer-wound Yes Skin Appearance) -Ulcer Cleansing Rinsed/ Irrigated with Saline -Foul Odor after Cleansing No -Anesthetic Used 4% Lidocaine Solution #2 L Evans -Combined with other wound No -Current Size (cm) - Length 2.4 -Current Size (cm) - Width 1.5 -Current Size (cm) - Depth 0.1 -Total Square Cm 3.60 -Photo Taken No -Epithelialization None Present -Tunneling No -Undermining/Tunneling No -Circular Undermining No -Classification - Thickness Full Thickness without Exposed Support Structure -Exudate Amt Medium -Exudate Type Serosanguineous -Wound Margin Flat & Intact -Granulation Amt None Present (0 %) -Granulation Quality N/A -Slough/Fibrin Yes -Necrosis Amt Large (67-100%) -Necrotic Tissue Type Adherent Slough -Structure Exposed None/Limited to Skin Breakdown -Texture (Mer-wound Skin Appearance) Assessed Localized Edema Scarring -Moisture (Mer-wound Skin Appearance Assessed ) Weeping -Color (Mer-wound Skin Appearance) Assessed Erythema Hemosiderin Staining -Temperature (Mer-wound Skin No Abnormality Appearance) (Pt Warm) -Tenderness on Palpation (Mer-wound No Skin Appearance) -Ulcer Cleansing Rinsed/ Irrigated with Saline -Foul Odor after Cleansing No -Anesthetic Used 4% Lidocaine Solution #1 L Knee -Combined with other wound No -Current Size (cm) - Length 3.1 -Current Size (cm) - Width 2.0 -Current Size (cm) - Depth 0.1 -Total Square Cm 6.20 -Photo Taken No -Epithelialization None Present -Tunneling No -Undermining/Tunneling No -Circular Undermining No -Classification - Thickness Full Thickness without Exposed Support Structure -Exudate Amt Medium -Exudate Type Serosanguineous -Wound Margin Indistinct, Non -Visible -Granulation Amt None Present (0 %) -Granulation Quality N/A -Slough/Fibrin Yes -Necrosis Amt Large (67-100%) -Necrotic Tissue Type Eschar -Structure Exposed None/Limited to Skin Breakdown -Texture (Mer-wound Skin Appearance) Assessed Localized Edema Scarring -Moisture (Mer-wound Skin Appearance Assessed ) Weeping -Color (Mer-wound Skin Appearance) Assessed Erythema Hemosiderin Staining -Temperature (Mer-wound Skin No Abnormality Appearance) (Pt Warm) -Tenderness on Palpation (Mer-wound No Skin Appearance) -Ulcer Cleansing Rinsed/ Irrigated with Saline -Foul Odor after Cleansing No -Anesthetic Used 4% Lidocaine Solution [Edema Assessment] -Lower Limb Edema Present Yes -Left Calf (cm) 42.0 -Left Ankle (cm) 30.0 WC - Nurse 2 - General Ulcer CM Notes Start: 09/29/18 10:53 Freq: Status: Active Protocol: Activity Type Activity Date Activity User E-Sign Co-Sign Detail Recorded Client Recorded Date Recorded By Document 10/06/18 10:12 MW [id number] 10/06/18 10:14 MW 10/06/18 10:12 Wound Center Nurse 2 [Procedure/Treatment] #3 L ANt ankle -Time 10:12 -Correct Patient Yes -Correct Side, Site, Position Yes -Correct Procedure Yes -Procedure Performed Yes -Type of Procedure Debridement -Clinical Debridement Subcutaneous -Post Debridement Size (cm) - Length 2.5 -Post Debridement Size (cm) - Width 3.3 -Post Debridement Size (cm) - Depth 0.1 -Total Square Cm 8.25 -Wound/Ulcer Outcome Not Healed -Ulcer Cleansing Rinsed/ Irrigated with Saline -Foul Odor after Cleansing No -Bioengineered Tissue No -Bleeding Controlled with Pressure -Offloading No -Treatment Response Procedure Tolerated Well #2 L Evans -Time 10:12 -Correct Patient Yes -Correct Side, Site, Position Yes -Correct Procedure Yes -Procedure Performed Yes -Type of Procedure Debridement -Clinical Debridement Subcutaneous -Post Debridement Size (cm) - Length 3.0 -Post Debridement Size (cm) - Width 1.7 -Post Debridement Size (cm) - Depth 0.1 -Total Square Cm 5.10 -Wound/Ulcer Outcome Not Healed -Ulcer Cleansing Rinsed/ Irrigated with Saline -Foul Odor after Cleansing No -Bioengineered Tissue No -Bleeding Controlled with Pressure -Offloading No -Treatment Response Procedure Tolerated Well #1 L Knee -Time 10:13 -Correct Patient Yes -Correct Side, Site, Position Yes -Correct Procedure Yes -Procedure Performed Yes -Type of Procedure Debridement -Clinical Debridement Subcutaneous -Post Debridement Size (cm) - Length 4.0 -Post Debridement Size (cm) - Width 2.0 -Post Debridement Size (cm) - Depth 0.1 -Total Square Cm 8.00 -Wound/Ulcer Outcome Not Healed -Ulcer Cleansing Rinsed/ Irrigated with Saline -Foul Odor after Cleansing No -Bioengineered Tissue No -Bleeding Controlled with Pressure -Offloading No -Treatment Response Procedure Tolerated Well [See Physician Procedure note for Specifics] Pain Scale: 0-10 Numeric [Pain] -Is Patient Pain Free? Yes Musculoskeletal: No Tenderness to Palpation of Joints or Extremities Neurological: Neuro grossly intact Psych/Mental Status: Normal Affect, Appropriate Debridement Note Post-Debridement Measurements/Treatment WC - Nurse 2 - General Ulcer CM Notes Start: 09/29/18 10:53 Freq: Status: Active Protocol: Activity Type Activity Date Activity User E-Sign Co-Sign Detail Recorded Client Recorded Date Recorded By Document 09/29/18 11:49 [id number] 09/29/18 11:59 Document 10/06/18 10:12 MW [id number] 10/06/18 10:14 MW 09/29/18 10/06/18 11:49 10:12 Wound Center Nurse 2 #3 L ANt ankle -Time 11:55 10:12 -Correct Patient Yes Yes -Correct Side, Site, Position Yes Yes -Correct Procedure Yes Yes -Procedure Performed Yes Yes -Type of Procedure Debridement Debridement -Clinical Debridement Subcutaneous Subcutaneous -Post Debridement Size (cm) - Length 2.4 2.5 -Post Debridement Size (cm) - Width 3.5 3.3 -Post Debridement Size (cm) - Depth 0.2 0.1 -Total Square Cm 8.40 8.25 -Wound/Ulcer Outcome Not Healed Not Healed -Ulcer Cleansing Rinsed/ Rinsed/ Irrigated with Irrigated with Saline Saline -Foul Odor after Cleansing No No -Bioengineered Tissue No No -Bleeding Controlled with Pressure Pressure -Offloading No No -Treatment Response Procedure Procedure Tolerated Well Tolerated Well #2 L Evans -Time 11:53 10:12 -Correct Patient Yes Yes -Correct Side, Site, Position Yes Yes -Correct Procedure Yes Yes -Procedure Performed Yes Yes -Type of Procedure Debridement Debridement -Clinical Debridement Subcutaneous Subcutaneous -Post Debridement Size (cm) - Length 3.3 3.0 -Post Debridement Size (cm) - Width 1.7 1.7 -Post Debridement Size (cm) - Depth 0.1 0.1 -Total Square Cm 5.61 5.10 -Wound/Ulcer Outcome Not Healed Not Healed -Ulcer Cleansing Rinsed/ Rinsed/ Irrigated with Irrigated with Saline Saline -Foul Odor after Cleansing No No -Bioengineered Tissue No No -Bleeding Controlled with Pressure Pressure -Offloading No No -Treatment Response Procedure Procedure Tolerated Well Tolerated Well #1 L Knee -Time 11:55 10:13 -Correct Patient Yes Yes -Correct Side, Site, Position Yes Yes -Correct Procedure Yes Yes -Procedure Performed Yes Yes -Type of Procedure Debridement Debridement -Clinical Debridement Subcutaneous Subcutaneous -Post Debridement Size (cm) - Length 5.0 4.0 -Post Debridement Size (cm) - Width 2.3 2.0 -Post Debridement Size (cm) - Depth 0.1 0.1 -Total Square Cm 11.50 8.00 -Wound/Ulcer Outcome Not Healed Not Healed -Ulcer Cleansing Rinsed/ Rinsed/ Irrigated with Irrigated with Saline Saline -Foul Odor after Cleansing No No -Bioengineered Tissue No No -Bleeding Controlled with Pressure Pressure -Offloading No No -Treatment Response Procedure Procedure Tolerated Well Tolerated Well Pain Scale: 0-10 Numeric Is Patient Pain Free? Yes Yes Wound debrided: Left Knee Laterality: Left Type of Debridement: Excisional debridement Anesthesia Used: 4% Lidocaine Solution Depth: Down to and including healthy tissue, in the subcutaneous layer Percentage of wound debrided: 100 Instrument Used: 7mm curette Tissue Removed: Subcutaneous tissue and slough Severity: Limited To Skin Breakdown Amount of bleeding with debridement: Mild Bleeding Controlled with: Pressure Patient tolerated procedure well - Additional Wound Wound debrided: Left knee Laterality: Left Type of Debridement: Excisional debridement Anesthesia Used: 4% Lidocaine Solution Depth: Down to and including healthy tissue, in the subcutaneous layer Percentage of wound debrided: 100 Instrument Used: 7mm curette Tissue Removed: Subcutaneous tissue and slough Severity: Limited To Skin Breakdown Amount of bleeding with debridement: Mild Bleeding Controlled with: Pressure Patient tolerated procedure: Patient tolerated procedure well - Additional Wound Wound debrided: Left ankle Laterality: Left Type of Debridement: Excisional debridement Anesthesia Used: 4% Lidocaine Solution Depth: Down to and including healthy tissue, in the subcutaneous layer Percentage of wound debrided: 100 Instrument Used: 7mm curette Tissue Removed: Subcutaneous tissue and slough Severity: Limited To Skin Breakdown Amount of bleeding with debridement: Mild Bleeding Controlled with: Pressure Patient tolerated procedure: Patient tolerated procedure well Assessment/Plan Active Problems Open wound of left knee (Acute) Wound of left leg (Acute) Open wound of left ankle (Acute) CHF (congestive heart failure) (Chronic) Peripheral vascular disease (Acute) Bilateral lower extremity edema (Chronic) Superficial burn (Acute) Assessment: 1. Open wound of left ankle. 2. Open wound of left knee. 3. Wound of left leg. 4. Superficial burn. 5. CHF (congestive heart failure). 6. Bilateral lower extremity edema. 7. Peripheral vascular disease Plan: Patient was seen and evaluated in the wound center today. He had a subcutaneous debridement of his three wounds today and tolerated the proceedure well. The ankle wound is looking much better with the Santyl. The left knee and anterior lower leg wounds are looking better also. Will continue santyl to all the wounds daily. Patient lives in an assisted living and they have home health who can assist the patient with his wounds. Will order both venous and arterial studies. Will apply one layer of tubigrip to help with edema until vascular study results are seen. Patient has significant amount of pitting edema but it is +3 this week and decreased compared to last week. He states he is trying to elevate his legs throughout the day. Instructed him that he needs to elevate feet at least twice a day for 30 minutes at time. Also encouraged patient to cut back on his sodium intake. Since he lives in assisted living, he does not have control over his diet. Will also obtain a wound culture of the left knee open area since there is redness and swelling surrounding this area. He will follow up in one week. Code Visit [id number]: [id number] Huong subq tissue 20 sq cm/<
[2018-10-13 09:52] VITALS: BP 84/43; PULSE 51; RESP 16; TEMP 35.9; BMI 33.7
--- NOTE | 2018-10-13 13:04 | PCM.WC.PN ---
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 Current Visit: Yes Code(s): L97.329 - Non-pressure chronic ulcer of left ankle with unspecified severity (4) Superficial burn Status: Chronic Current Visit: Yes Code(s): T30.0 - Burn of unspecified body region, unspecified degree (5) Bilateral lower extremity edema Status: Chronic Current Visit: Yes Code(s): R60.0 - Localized edema (6) CHF (congestive heart failure) Status: Chronic Current Visit: Yes Code(s): I50.9 - Heart failure, unspecified (7) Peripheral vascular disease Status: Chronic Current Visit: Yes Code(s): I73.9 - Peripheral vascular disease, unspecified Type of Wound Date of Service: 10/13/18 Chief Complaint: Opened areas on left lower extremity caused from spilling hot water down leg. History of Wound: On 09/12/18 patient spilled hot water down his left leg. He lives in an assisted living facility, [facility], that he needs to do his own wound care. His PCP phoned in [facility] on 09/15 but according to the aid who is with the patient she states the patient has done nothing to the wounds. His PCP saw him on 09/22/18 who referred him to the wound clinic. Patient does have a significant history of CHF and has +3-+4 pitting edema of bilateral lower extremities. Wound care is Santyl. Will apply for epifix. Progress of Wound: Slightly improved with Santyl. - Physical Exam Vital Signs Temp Pulse Resp BP 96.6 F L 51 L 16 84/43 L 10/13/18 09:52 10/13/18 09:52 10/13/18 09:52 10/13/18 09:52 General: Alert, Oriented x3, Cooperative HEENT: Atraumatic Oral: Moist Mucosa Lungs: Normal air movement Cardiovascular: Regular rate Extremities: Edema - +2 edema, which is improved. He is wearing compression Skin: Ulcer/ Wound - Ulcers of his left knee, left lower anterior leg and left medial ankle. Wound Measurements and Assessment WC - Nurse 1 - General Ulcer Measurement Start: 09/29/18 10:53 Freq: Status: Active Protocol: Activity Type Activity Date Activity User E-Sign Co-Sign Detail Recorded Client Recorded Date Recorded By Document 10/13/18 09:52 AN [id number] 10/13/18 09:58 AN 10/13/18 09:52 Wound Center Nurse 1 [Ulcer Assessment] #3 L ANt ankle -Current Size (cm) - Length 1.7 -Current Size (cm) - Width 2.5 -Current Size (cm) - Depth 0.1 -Total Square Cm 4.25 -Photo Taken No -Classification - Thickness Full Thickness without Exposed Support Structure -Exudate Amt Small -Exudate Type Serosanguineous -Wound Margin Distinct, Outline Attached -Granulation Amt Medium (34-66%) -Granulation Quality Red -Slough/Fibrin Yes -Necrosis Amt Medium (34-66%) -Necrotic Tissue Type Adherent Slough -Structure Exposed None/Limited to Skin Breakdown -Texture (Mer-wound Skin Appearance) Assessed -Moisture (Mer-wound Skin Appearance Assessed ) -Color (Mer-wound Skin Appearance) Assessed Hemosiderin Staining -Temperature (Mer-wound Skin No Abnormality Appearance) (Pt Warm) -Tenderness on Palpation (Mer-wound Yes Skin Appearance) -Ulcer Cleansing Rinsed/ Irrigated with Saline -Foul Odor after Cleansing No -Anesthetic Used 4% Lidocaine Solution #2 L Evans -Current Size (cm) - Length 2.0 -Current Size (cm) - Width 1.0 -Current Size (cm) - Depth 0.1 -Total Square Cm 2.00 -Tunneling No -Classification - Thickness Full Thickness without Exposed Support Structure -Exudate Amt Small -Exudate Type Serosanguineous -Wound Margin Distinct, Outline Attached -Granulation Amt Medium (34-66%) -Granulation Quality Red -Slough/Fibrin Yes -Necrosis Amt Medium (34-66%) -Necrotic Tissue Type Adherent Slough -Structure Exposed None/Limited to Skin Breakdown -Texture (Mer-wound Skin Appearance) Assessed -Moisture (Mer-wound Skin Appearance Assessed ) -Color (Mer-wound Skin Appearance) Assessed -Temperature (Mer-wound Skin No Abnormality Appearance) (Pt Warm) -Tenderness on Palpation (Mer-wound Yes Skin Appearance) -Ulcer Cleansing Rinsed/ Irrigated with Saline -Foul Odor after Cleansing No -Anesthetic Used 4% Lidocaine Solution #1 L Knee -Current Size (cm) - Length 3.5 -Current Size (cm) - Width 1.4 -Current Size (cm) - Depth 0.1 -Total Square Cm 4.90 -Classification - Thickness Full Thickness without Exposed Support Structure -Exudate Amt Small -Exudate Type Serosanguineous -Wound Margin Distinct, Outline Attached -Granulation Amt Small (1-33%) -Granulation Quality Red -Slough/Fibrin Yes -Necrosis Amt Large (67-100%) -Necrotic Tissue Type Eschar -Structure Exposed None/Limited to Skin Breakdown -Texture (Mer-wound Skin Appearance) Assessed Localized Edema -Moisture (Mer-wound Skin Appearance Assessed ) -Color (Mer-wound Skin Appearance) Assessed Hemosiderin Staining -Temperature (Mer-wound Skin No Abnormality Appearance) (Pt Warm) -Tenderness on Palpation (Mer-wound Yes Skin Appearance) -Ulcer Cleansing Rinsed/ Irrigated with Saline -Foul Odor after Cleansing No -Anesthetic Used 4% Lidocaine Solution [Edema Assessment] -Left Calf (cm) 41.0 -Left Ankle (cm) 29.2 WC - Nurse 2 - General Ulcer CM Notes Start: 09/29/18 10:53 Freq: Status: Active Protocol: Activity Type Activity Date Activity User E-Sign Co-Sign Detail Recorded Client Recorded Date Recorded By Document 10/13/18 10:47 [email or web address] [id number] 10/13/18 10:51 [email or web address] 10/13/18 10:47 Wound Center Nurse 2 [Procedure/Treatment] #3 L ANt ankle -Time 10:47 -Correct Patient Yes -Correct Side, Site, Position Yes -Correct Procedure Yes -Procedure Performed Yes -Type of Procedure Debridement -Clinical Debridement Subcutaneous -Post Debridement Size (cm) - Length 2.4 -Post Debridement Size (cm) - Width 3.0 -Post Debridement Size (cm) - Depth 0.2 -Total Square Cm 7.20 -Wound/Ulcer Outcome Not Healed -Ulcer Cleansing Rinsed/ Irrigated with Saline -Foul Odor after Cleansing No -Bioengineered Tissue No -Bleeding Controlled with Pressure -Offloading No -Treatment Response Procedure Tolerated Well #2 L Evans -Time 10:47 -Correct Patient Yes -Correct Side, Site, Position Yes -Correct Procedure Yes -Procedure Performed Yes -Type of Procedure Debridement -Clinical Debridement Subcutaneous -Post Debridement Size (cm) - Length 2.6 -Post Debridement Size (cm) - Width 1.5 -Post Debridement Size (cm) - Depth 0.1 -Total Square Cm 3.90 -Wound/Ulcer Outcome Not Healed -Ulcer Cleansing Rinsed/ Irrigated with Saline -Foul Odor after Cleansing No -Bioengineered Tissue No -Bleeding Controlled with Pressure -Offloading No -Treatment Response Procedure Tolerated Well #1 L Knee -Time 10:48 -Correct Patient Yes -Correct Side, Site, Position Yes -Correct Procedure Yes -Procedure Performed Yes -Type of Procedure Debridement -Clinical Debridement Subcutaneous -Post Debridement Size (cm) - Length 4.0 -Post Debridement Size (cm) - Width 1.7 -Post Debridement Size (cm) - Depth 0.1 -Total Square Cm 6.80 -Wound/Ulcer Outcome Not Healed -Ulcer Cleansing Rinsed/ Irrigated with Saline -Foul Odor after Cleansing No -Bioengineered Tissue No -Bleeding Controlled with Pressure -Offloading No -Treatment Response Procedure Tolerated Well [See Physician Procedure note for Specifics] Pain Scale: 0-10 Numeric [Pain] -Is Patient Pain Free? Yes Musculoskeletal: No Tenderness to Palpation of Joints or Extremities Neurological: Neuro grossly intact Psych/Mental Status: Normal Affect, Appropriate Debridement Note Post-Debridement Measurements/Treatment WC - Nurse 2 - General Ulcer CM Notes Start: 09/29/18 10:53 Freq: Status: Active Protocol: Activity Type Activity Date Activity User E-Sign Co-Sign Detail Recorded Client Recorded Date Recorded By Document 09/29/18 11:49 [id number] 09/29/18 11:59 Document 10/06/18 10:12 MW [id number] 10/06/18 10:14 MW Document 10/13/18 10:47 [id number] 10/13/18 10:51 09/29/18 10/06/18 10/13/18 11:49 10:12 10:47 Wound Center Nurse 2 #3 L ANt ankle -Time 11:55 10:12 10:47 -Correct Patient Yes Yes Yes -Correct Side, Site, Position Yes Yes Yes -Correct Procedure Yes Yes Yes -Procedure Performed Yes Yes Yes -Type of Procedure Debridement Debridement Debridement -Clinical Debridement Subcutaneous Subcutaneous Subcutaneous -Post Debridement Size (cm) - Length 2.4 2.5 2.4 -Post Debridement Size (cm) - Width 3.5 3.3 3.0 -Post Debridement Size (cm) - Depth 0.2 0.1 0.2 -Total Square Cm 8.40 8.25 7.20 -Wound/Ulcer Outcome Not Healed Not Healed Not Healed -Ulcer Cleansing Rinsed/ Rinsed/ Rinsed/ Irrigated with Irrigated with Irrigated with Saline Saline Saline -Foul Odor after Cleansing No No No -Bioengineered Tissue No No No -Bleeding Controlled with Pressure Pressure Pressure -Offloading No No No -Treatment Response Procedure Procedure Procedure Tolerated Well Tolerated Well Tolerated Well #2 L Evans -Time 11:53 10:12 10:47 -Correct Patient Yes Yes Yes -Correct Side, Site, Position Yes Yes Yes -Correct Procedure Yes Yes Yes -Procedure Performed Yes Yes Yes -Type of Procedure Debridement Debridement Debridement -Clinical Debridement Subcutaneous Subcutaneous Subcutaneous -Post Debridement Size (cm) - Length 3.3 3.0 2.6 -Post Debridement Size (cm) - Width 1.7 1.7 1.5 -Post Debridement Size (cm) - Depth 0.1 0.1 0.1 -Total Square Cm 5.61 5.10 3.90 -Wound/Ulcer Outcome Not Healed Not Healed Not Healed -Ulcer Cleansing Rinsed/ Rinsed/ Rinsed/ Irrigated with Irrigated with Irrigated with Saline Saline Saline -Foul Odor after Cleansing No No No -Bioengineered Tissue No No No -Bleeding Controlled with Pressure Pressure Pressure -Offloading No No No -Treatment Response Procedure Procedure Procedure Tolerated Well Tolerated Well Tolerated Well #1 L Knee -Time 11:55 10:13 10:48 -Correct Patient Yes Yes Yes -Correct Side, Site, Position Yes Yes Yes -Correct Procedure Yes Yes Yes -Procedure Performed Yes Yes Yes -Type of Procedure Debridement Debridement Debridement -Clinical Debridement Subcutaneous Subcutaneous Subcutaneous -Post Debridement Size (cm) - Length 5.0 4.0 4.0 -Post Debridement Size (cm) - Width 2.3 2.0 1.7 -Post Debridement Size (cm) - Depth 0.1 0.1 0.1 -Total Square Cm 11.50 8.00 6.80 -Wound/Ulcer Outcome Not Healed Not Healed Not Healed -Ulcer Cleansing Rinsed/ Rinsed/ Rinsed/ Irrigated with Irrigated with Irrigated with Saline Saline Saline -Foul Odor after Cleansing No No No -Bioengineered Tissue No No No -Bleeding Controlled with Pressure Pressure Pressure -Offloading No No No -Treatment Response Procedure Procedure Procedure Tolerated Well Tolerated Well Tolerated Well Pain Scale: 0-10 Numeric Is Patient Pain Free? Yes Yes Yes Wound debrided: Left knee ulcer Laterality: Left Type of Debridement: Excisional debridement Anesthesia Used: 4% Lidocaine Solution Depth: Down to and including healthy tissue, in the subcutaneous layer Percentage of wound debrided: 100 Instrument Used: 7mm curette Tissue Removed: Subcutaneous tissue and slough Severity: Fat Layer Exposed Amount of bleeding with debridement: Mild Bleeding Controlled with: Pressure Patient tolerated procedure well - Additional Wound Wound debrided: Left anterior lower leg Laterality: Left Type of Debridement: Excisional debridement Anesthesia Used: 4% Lidocaine Solution Depth: Down to and including healthy tissue, in the subcutaneous layer Percentage of wound debrided: 100 Instrument Used: 7mm curette Tissue Removed: Subcutaneous tissue and slough Severity: Fat Layer Exposed Amount of bleeding with debridement: Mild Bleeding Controlled with: Pressure Patient tolerated procedure: Patient tolerated procedure well - Additional Wound Wound debrided: Left medial ankle Laterality: Left Type of Debridement: Excisional debridement Anesthesia Used: 4% Lidocaine Solution Depth: Down to and including healthy tissue, in the subcutaneous layer Percentage of wound debrided: 100 Instrument Used: 7mm curette Tissue Removed: Subcutaneous tissue and slough Severity: Fat Layer Exposed Amount of bleeding with debridement: Mild Bleeding Controlled with: Pressure Patient tolerated procedure: Patient tolerated procedure well Assessment/Plan Active Problems CHF (congestive heart failure) (Chronic) Peripheral vascular disease (Chronic) Bilateral lower extremity edema (Chronic) Superficial burn (Chronic) Ulcer of left lower extremity with fat layer exposed (Chronic) Chronic ulcer of left ankle (Chronic) Ulcer of left knee (Chronic) Assessment: 1. Ulcer of left knee. 2. Ulcer of left lower extremity with fat layer exposed. 3. Chronic ulcer of left ankle. 4. Superficial burn. 5. CHF (congestive heart failure). 6. Bilateral lower extremity edema. 7. Peripheral vascular disease Plan: Patient was seen and evaluated in the wound center today. He had a subcutaneous debridement of his three ulcers today and tolerated the proceedure well. The ankle ulcer is looking much better with the Santyl. The left knee and anterior lower leg ulcers are looking better also. Will continue santyl to all the opened areas daily. Patient lives in an assisted living and they have home health who can assist the patient with his wound care. Will order both venous and arterial studies. They are scheduled for next week. Will apply for epifix to all the ulcers. This would be beneficial to help expidite healing now that Santyl has improved the ulcer bed. Will apply one layer of tubigrip to help with edema until vascular study results are seen. Patient has significant amount of pitting edema but it is +2 this week and decreased compared to last week. He states he is trying to elevate his legs throughout the day. Instructed him that he needs to elevate feet at least twice a day for 30 minutes at time. Also encouraged patient to cut back on his sodium intake. Since he lives in assisted living, he does not have control over his diet. Will also obtain a wound culture of the left knee open area since there is redness and swelling surrounding this area. He will follow up in one week. Code Visit [id number]: [id number] Huong subq tissue 20 sq cm/<
--- NOTE | 2018-10-20 09:45 | ART_ITS ---
Reason For Study: Left leg ulcer Procedure A bilateral lower extremity continuous wave Doppler with analog waveform analysis,segmental pressures,and ankle brachial indexes without exercise. Left Segmental Pressures Left brachial= 94mmHg. Left posterior tibial artery = 154mmHg. Left dorsalis pedis artery = 112mmHg. The left dorsalis pedis waveforms are triphasic. The left posterior tibial artery waveforms are triphasic. Right Segmental Pressures Right brachial= 93mmHg. Right posterior tibial artery = 95mmHg. Right dorsalis pedis artery = 98mmHg. The right dorsalis pedis waveforms are triphasic. The right posterior tibial artery waveforms are triphasic. Indices The right ankle brachial index by the dorsalis pedis is 1.04. The right ankle brachial index by the posterior tibial artery is 1.01. The left ankle brachial index by the dorsalis pedis is 1.19. The left ankle brachial index by the posterior tibial artery is 1.64. Interpretation Summary Triphasic Doppler waveforms are noted at ankle level bilaterally. Pulse-volume recording waveform amplitudes appear satisfactory at all levels bilaterally, including low-thigh, calf, ankle, and digital levels. The resting right ankle-brachial index is normal. The resting left ankle-brachial index is supra-normal. There is no evidence of significant arterial occlusive disease in the lower extremities bilaterally. Ordering Physician: Katharina Crowe NP-C Referring Physician: Dmitriy Fang MD Performed By: Selena Grant RVT
--- NOTE | 2018-10-20 09:45 | VDLE_ITS ---
Reason For Study: Left leg ulcer RIGHT LEFT CFV is compressible, spontaneous, phasic, CFV is compressible, spontaneous, phasic, competent and demonstrates normal competent, and demonstrates normal augmentation. augmentation. FV is compressible, spontaneous, phasic, FV is compressible, spontaneous, phasic, competent and demonstrates normal competent and demonstrates normal augmentation. augmentation. POP V is compressible, spontaneous, phasic, POP V is compressible, spontaneous, phasic, competent and demonstrates normal competent and demonstrates normal augmentation. augmentation. T/P Trunk is compressible. T/P Trunk is compressible. PTV is compressible. PTV is compressible. RT PerV is compressible. LT PerV is compressible. SFJ is competent. SFJ is competent. GSV is INCOMPETENT throughout for greater GSV is partially compressible with bright than 0.5 seconds and measures 0.52 x 0.52 cm. intraluminal echoes. 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 than 0.5 seconds and measures 0.56 x 0.63 cm. SSV is competent. SSV is competent. Procedure Exam performed in department. Interpretation Summary Deep veins of the lower extremities are bilaterally patent and compressible segmentally. There is no evidence of deep vein thrombosis on either side. Valvular competence appears intact within the proximal deep venous systems bilaterally. The greater saphenous veins appear bilaterally patent and compressible segmentally. Sapheno-femoral junctions are bilaterally competent . Segmental valvular incompetence is noted within the greater saphenous veins bilaterally. Chronic venous changes are noted in the left greater saphenous vein. Small saphenous veins are patent and competent bilaterally. An incompetent cooling tower operator vein is noted in the right calf, located 22 centimeters proximal to the right medial malleolus. Ordering Physician: JOSÉ MIGUEL Tran Referring Physician: Dmitriy Fang MD Performed By: Selena Grant RVT
[2018-10-20 11:59] VITALS: BMI 33.7
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
== END 2018-10-21 23:59 ==
LOC: WC 11:00
PROVIDERS: Family Provider Family Medicine; PCP Family Medicine; Referring Provider Nurse Practitioner Family; Visit Provider Nurse Practitioner Family
DX: I73.9 Peripheral vascular disease, unspecified (principal); I50.9 Heart failure, unspecified; I11.0 Hypertensive heart disease with heart failure; R60.0 Localized edema; I25.10 Atherosclerotic heart disease of native coronary artery without angina pectoris; G40.409 Other generalized epilepsy and epileptic syndromes, not intractable, without status epilepticus; E03.9 Hypothyroidism, unspecified; E78.5 Hyperlipidemia, unspecified; Z79.899 Other long term (current) drug therapy; Z79.82 Long term (current) use of aspirin; Z86.718 Personal history of other venous thrombosis and embolism; T25.212A Burn of second degree of left ankle, initial encounter; T24.222A Burn of second degree of left knee, initial encounter; T24.292A Burn of second degree of multiple sites of left lower limb, except ankle and foot, initial encounter; X11.8XXA Contact with other hot tap-water, initial encounter; R09.89 Other specified symptoms and signs involving the circulatory and respiratory systems; L97.321 Non-pressure chronic ulcer of left ankle limited to breakdown of skin; L97.821 Non-pressure chronic ulcer of other part of left lower leg limited to breakdown of skin
CPT/HCPCS: 11042; 11045; 15271; 29581; 87070; 87075; 87205; 93923; 93970; 99213; Q4186; G0463

== ENCOUNTER 2018-11-18 14:30 | Outpatient (RCR) | payer MEDICARE, OTHER, SELFPAY ==
[2018-10-22 01:45] VITALS: BP 84/43; PULSE 51; RESP 16; TEMP 35.9
[2018-10-27 13:05] VITALS: BP 87/47; PULSE 49; RESP 18; TEMP 36.5; BMI 33.7
--- NOTE | 2018-10-27 16:30 | PCM.WC.PN ---
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 History of Wound: On 09/12/18 patient spilled hot water down his left leg. He lives in an assisted living facility, [place], that he needs to do his own wound care. His PCP phoned in [facility] on 09/15 but according to the aid who is with the patient she states the patient has done nothing to the wounds. His PCP saw him on 09/22/18 who referred him to the wound clinic. Patient does have a significant history of CHF and has +3-+4 pitting edema of bilateral lower extremities. Wound care is Epifix. Applied epifix #2 today. Using 3M double wrap compression on the left leg. Progress of Wound: Improved. - Physical Exam Vital Signs Temp Pulse Resp BP 97.7 F L 49 L 18 87/47 L 10/27/18 13:05 10/27/18 13:05 10/27/18 13:05 10/27/18 13:05 General: Alert, Oriented x3, Cooperative HEENT: Atraumatic Oral: Moist Mucosa Lungs: Normal air movement Cardiovascular: Regular rate Extremities: Capillary Refill Less than 3 Seconds, Diminished Peripheral Pulses, Edema Skin: Ulcer/ Wound - Left knee, left anterior leg and left medial ankle Wound Measurements and Assessment WC - Nurse 1 - General Ulcer Measurement Start: 10/27/18 13:04 Freq: Status: Active Protocol: Activity Type Activity Date Activity User E-Sign Co-Sign Detail Recorded Client Recorded Date Recorded By Document 10/27/18 13:05 DL [id number] 10/27/18 13:25 DL 10/27/18 13:05 Wound Center Nurse 1 [Ulcer Assessment] #3 L ANt ankle -Current Size (cm) - Length 1.4 -Current Size (cm) - Width 1.5 -Current Size (cm) - Depth 0.2 -Total Square Cm 2.10 -Photo Taken No -Exudate Amt Small -Exudate Type Sanguineous -Wound Margin Thickened -Granulation Amt Large (67-100%) -Granulation Quality [place] -Necrosis Amt Small (1-33%) -Necrotic Tissue Type Adherent Slough -Structure Exposed N/A -Texture (Mer-wound Skin Appearance) Localized Edema Scarring -Moisture (Mer-wound Skin Appearance Dry/Scaly ) -Color (Mer-wound Skin Appearance) Hemosiderin Staining -Temperature (Mer-wound Skin No Abnormality Appearance) (Pt Warm) -Tenderness on Palpation (Mer-wound Yes Skin Appearance) -Ulcer Cleansing Wound Cleanser -Foul Odor after Cleansing No -Anesthetic Used 4% Lidocaine Solution #2 L Evans -Current Size (cm) - Length 1.4 -Current Size (cm) - Width 0.5 -Current Size (cm) - Depth 0.1 -Total Square Cm 0.70 -Photo Taken No -Exudate Amt None Present -Wound Margin Thickened -Granulation Amt Medium (34-66%) -Granulation Quality Pale [place] -Necrosis Amt Small (1-33%) -Necrotic Tissue Type Adherent Slough -Structure Exposed N/A -Texture (Mer-wound Skin Appearance) Localized Edema Scarring -Moisture (Mer-wound Skin Appearance Dry/Scaly ) -Color (Mer-wound Skin Appearance) Hemosiderin Staining -Temperature (Mer-wound Skin No Abnormality Appearance) (Pt Warm) -Tenderness on Palpation (Mer-wound No Skin Appearance) -Ulcer Cleansing Wound Cleanser -Foul Odor after Cleansing No -Anesthetic Used 4% Lidocaine Solution #1 L Knee -Current Size (cm) - Length 2.4 -Current Size (cm) - Width 0.8 -Current Size (cm) - Depth 0.1 -Total Square Cm 1.92 -Photo Taken No -Exudate Amt None Present -Exudate Type Serosanguineous -Wound Margin Distinct, Outline Attached -Granulation Amt Medium (34-66%) -Granulation Quality [place] -Necrosis Amt Medium (34-66%) -Necrotic Tissue Type Adherent Slough -Structure Exposed N/A -Texture (Mer-wound Skin Appearance) Localized Edema Scarring -Moisture (Mer-wound Skin Appearance No Abnormality ) -Color (Mer-wound Skin Appearance) Hemosiderin Staining Rubor -Temperature (Mer-wound Skin No Abnormality Appearance) (Pt Warm) -Tenderness on Palpation (Mer-wound No Skin Appearance) -Ulcer Cleansing Wound Cleanser -Foul Odor after Cleansing No -Anesthetic Used 4% Lidocaine Solution [Edema Assessment] -Left Calf (cm) 40 -Left Ankle (cm) 26.8 WC - Nurse 2 - General Ulcer CM Notes Start: 10/27/18 13:04 Freq: Status: Active Protocol: Activity Type Activity Date Activity User E-Sign Co-Sign Detail Recorded Client Recorded Date Recorded By Document 10/27/18 13:43 RUPINDER [id number] 10/27/18 13:46 RUPINDER 10/27/18 13:43 Wound Center Nurse 2 [Procedure/Treatment] #3 L ANt ankle -Time 13:43 -Correct Patient Yes -Correct Side, Site, Position Yes -Correct Procedure Yes -Procedure Performed Yes -Type of Procedure Debridement -Clinical Debridement Subcutaneous -Post Debridement Size (cm) - Length 2 -Post Debridement Size (cm) - Width 2.4 -Post Debridement Size (cm) - Depth 0.2 -Total Square Cm 4.8 -Wound/Ulcer Outcome Not Healed -Ulcer Cleansing Rinsed/ Irrigated with Saline -Foul Odor after Cleansing No -Bioengineered Tissue Yes -Type of bioengineered Tissue EPIFIX -Expiration Date 02/22/23 -Product Lot Number [id number] -Percent Used 100 -Saline Lot Number [id number] -Bleeding Controlled with Pressure -Offloading No -Treatment Response Procedure Tolerated Well #2 L Evans -Time 13:44 -Correct Patient Yes -Correct Side, Site, Position Yes -Correct Procedure Yes -Procedure Performed Yes -Type of Procedure Debridement -Clinical Debridement Subcutaneous -Post Debridement Size (cm) - Length 1.4 -Post Debridement Size (cm) - Width 1.0 -Post Debridement Size (cm) - Depth 0.2 -Total Square Cm 1.40 -Wound/Ulcer Outcome Not Healed -Ulcer Cleansing Rinsed/ Irrigated with Saline -Foul Odor after Cleansing No -Bioengineered Tissue Yes -Type of bioengineered Tissue EPIFIX -Expiration Date 02/22/23 -Product Lot Number [id number] -Percent Used 100 -Saline Lot Number [id number] -Bleeding Controlled with Pressure -Offloading No -Treatment Response Procedure Tolerated Well #1 L Knee -Time 13:45 -Correct Patient Yes -Correct Side, Site, Position Yes -Correct Procedure Yes -Procedure Performed Yes -Type of Procedure Debridement -Clinical Debridement Subcutaneous -Post Debridement Size (cm) - Length 3.3 -Post Debridement Size (cm) - Width 1.9 -Post Debridement Size (cm) - Depth 0.1 -Total Square Cm 6.27 -Wound/Ulcer Outcome Not Healed -Ulcer Cleansing Rinsed/ Irrigated with Saline -Foul Odor after Cleansing No -Bioengineered Tissue Yes -Type of bioengineered Tissue EPIFIX -Expiration Date 02/22/23 -Product Lot Number [id number] -Percent Used 100 -Saline Lot Number [id number] -Bleeding Controlled with Pressure -Offloading No -Treatment Response Procedure Tolerated Well [See Physician Procedure note for Specifics] Pain Scale: 0-10 Numeric [Pain] -Is Patient Pain Free? Yes Neurological: Neuro grossly intact Psych/Mental Status: Normal Affect, Appropriate Debridement Note Post-Debridement Measurements/Treatment WC - Nurse 2 - General Ulcer CM Notes Start: 10/27/18 13:04 Freq: Status: Active Protocol: Activity Type Activity Date Activity User E-Sign Co-Sign Detail Recorded Client Recorded Date Recorded By Document 10/27/18 13:43 RUPINDER [id number] 10/27/18 13:46 RUPINDER 10/27/18 13:43 Wound Center Nurse 2 #3 L ANt ankle -Time 13:43 -Correct Patient Yes -Correct Side, Site, Position Yes -Correct Procedure Yes -Procedure Performed Yes -Type of Procedure Debridement -Clinical Debridement Subcutaneous -Post Debridement Size (cm) - Length 2 -Post Debridement Size (cm) - Width 2.4 -Post Debridement Size (cm) - Depth 0.2 -Total Square Cm 4.8 -Wound/Ulcer Outcome Not Healed -Ulcer Cleansing Rinsed/ Irrigated with Saline -Foul Odor after Cleansing No -Bioengineered Tissue Yes -Type of bioengineered Tissue EPIFIX -Expiration Date 02/22/23 -Product Lot Number [id number] -Percent Used 100 -Saline Lot Number [id number] -Bleeding Controlled with Pressure -Offloading No -Treatment Response Procedure Tolerated Well #2 L Evans -Time 13:44 -Correct Patient Yes -Correct Side, Site, Position Yes -Correct Procedure Yes -Procedure Performed Yes -Type of Procedure Debridement -Clinical Debridement Subcutaneous -Post Debridement Size (cm) - Length 1.4 -Post Debridement Size (cm) - Width 1.0 -Post Debridement Size (cm) - Depth 0.2 -Total Square Cm 1.40 -Wound/Ulcer Outcome Not Healed -Ulcer Cleansing Rinsed/ Irrigated with Saline -Foul Odor after Cleansing No -Bioengineered Tissue Yes -Type of bioengineered Tissue EPIFIX -Expiration Date 02/22/23 -Product Lot Number [id number] -Percent Used 100 -Saline Lot Number [id number] -Bleeding Controlled with Pressure -Offloading No -Treatment Response Procedure Tolerated Well #1 L Knee -Time 13:45 -Correct Patient Yes -Correct Side, Site, Position Yes -Correct Procedure Yes -Procedure Performed Yes -Type of Procedure Debridement -Clinical Debridement Subcutaneous -Post Debridement Size (cm) - Length 3.3 -Post Debridement Size (cm) - Width 1.9 -Post Debridement Size (cm) - Depth 0.1 -Total Square Cm 6.27 -Wound/Ulcer Outcome Not Healed -Ulcer Cleansing Rinsed/ Irrigated with Saline -Foul Odor after Cleansing No -Bioengineered Tissue Yes -Type of bioengineered Tissue EPIFIX -Expiration Date 02/22/23 -Product Lot Number [id number] -Percent Used 100 -Saline Lot Number [id number] -Bleeding Controlled with Pressure -Offloading No -Treatment Response Procedure Tolerated Well Pain Scale: 0-10 Numeric Is Patient Pain Free? Yes Wound debrided: Left knee ulcer Type of Debridement: Excisional debridement Anesthesia Used: 5% Lidocaine Gel Depth: Down to and including healthy tissue, in the subcutaneous layer Percentage of wound debrided: 100 Instrument Used: 5mm curette Tissue Removed: Subcutaneous tissue and slough Severity: Fat Layer Exposed Amount of bleeding with debridement: Mild Bleeding Controlled with: Pressure Patient tolerated procedure well - Additional Wound Wound debrided: Left anterior lower leg Laterality: Left Type of Debridement: Excisional debridement Anesthesia Used: 5% Lidocaine Gel Depth: Down to and including healthy tissue, in the subcutaneous layer Percentage of wound debrided: 100 Instrument Used: 5mm curette Tissue Removed: Subcutaneous tissue and slough Severity: Fat Layer Exposed Amount of bleeding with debridement: Mild Bleeding Controlled with: Pressure Patient tolerated procedure: Patient tolerated procedure well - Additional Wound Wound debrided: Left medial ankle Laterality: Left Type of Debridement: Excisional debridement Anesthesia Used: 5% Lidocaine Gel Depth: Down to and including healthy tissue, in the subcutaneous layer Percentage of wound debrided: 100 Instrument Used: 5mm curette Tissue Removed: Subcutaneous tissue and slough Severity: Limited To Skin Breakdown Amount of bleeding with debridement: Mild Bleeding Controlled with: Pressure Assessment/Plan Assessment: 1. Ulcer of left knee. 2. Ulcer of left lower extremity with fat layer exposed. 3. Chronic ulcer of left ankle. 4. Superficial burn. 5. CHF (congestive heart failure). 6. Bilateral lower extremity edema. 7. Peripheral vascular disease Plan: Patient was seen and evaluated in the wound center today. He had a subcutaneous debridement of his three ulcers today and tolerated the proceedure well. The ulcers are looking much better with the Santyl. Today we will apply Epifix #2 to all three uclers. Used 100 % of the product. Due to the amount of edema the patient has on we will apply 3M wrap to left lower extremity. Venous study on 10/20/18 showed Segmental valvular incompetence is noted within the greater saphenous veins bilaterally. Chronic venous changes are noted to the left greater saphenous vein. An incompetent liquor bridge operator helper vein is noted in the right calf, located 22 cm proximal to the right medial malleolus. Arterial studies on 10/20/18 LBI= 1.19, RBI=1.04. Triphasic doppler waveforms are noted at the ankle level bilaterally. There is no evidence of significant arterial occlusive disease in the lower extremities bilaterally. He states he is trying to elevate his legs throughout the day. Instructed him that he needs to elevate feet at least twice a day for 30 minutes at time. Also encouraged patient to cut back on his sodium intake. Since he lives in assisted living, he does not have control over his diet. Will also obtain a wound culture was negative for bacterial growth. He will follow up in one week. Code Visit [id number]: 31811 Skin sub graft trnk/arm/leg
[2018-11-03 13:01] VITALS: BP 100/57; PULSE 55; RESP 16; TEMP 36.2; BMI 33.7
--- NOTE | 2018-11-03 16:54 | PN.PCM_ITS ---
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 History of Wound: On 09/12/18 patient spilled hot water down his left leg. He lives in an assisted living facility, [facility], that he needs to do his own wound care. His PCP phoned in [facility] on 09/15 but according to the aid who is with the patient she states the patient has done nothing to the wounds. His PCP saw him on 09/22/18 who referred him to the wound clinic. Patient does have a significant history of CHF and has +3-+4 pitting edema of bilateral lower extremities. Wound care is Epifix. Applied epifix #3 today. Using 3M double wrap on the left leg, will also apply to the the right lower leg today. Follow up in one week. Progress of Wound: Improved. - Physical Exam Vital Signs Temp Pulse Resp BP 97.1 F L 55 L 16 100/57 L 11/03/18 13:01 11/03/18 13:01 11/03/18 13:01 11/03/18 13:01 General: Alert, Oriented x3 HEENT: Atraumatic Oral: Moist Mucosa Lungs: Normal air movement Cardiovascular: Regular rate Extremities: Capillary Refill Less than 3 Seconds, Diminished Peripheral Pulses, Edema - Left leg +1, Right leg +2-+3 Skin: Ulcer/ Wound - Left knee, left anterior lower leg and left medial ankle Wound Measurements and Assessment WC - Nurse 1 - General Ulcer Measurement Start: 10/27/18 13:04 Freq: Status: Active Protocol: Activity Type Activity Date Activity User E-Sign Co-Sign Detail Recorded Client Recorded Date Recorded By Document 11/03/18 13:01 MW [id number] 11/03/18 13:15 MW 11/03/18 13:01 Wound Center Nurse 1 [Ulcer Assessment] #3 L ANt ankle -Combined with other wound No -Current Size (cm) - Length 2.5 -Current Size (cm) - Width 3.0 -Current Size (cm) - Depth 0.1 -Total Square Cm 7.50 -Date of Last Picture (Recall this 11/03/18 field) -Photo Taken Yes -Epithelialization None Present -Tunneling No -Undermining/Tunneling No -Circular Undermining No -Wound Margin Flat & Intact -Granulation Amt None Present (0 %) -Granulation Quality N/A -Slough/Fibrin Yes -Necrosis Amt Large (67-100%) -Structure Exposed N/A -Texture (Mer-wound Skin Appearance) Assessed Localized Edema Scarring -Moisture (Mer-wound Skin Appearance Assessed ) Dry/Scaly -Color (Mer-wound Skin Appearance) Assessed Hemosiderin Staining -Temperature (Mer-wound Skin No Abnormality Appearance) (Pt Warm) -Tenderness on Palpation (Mer-wound No Skin Appearance) -Ulcer Cleansing soap and water -Foul Odor after Cleansing No -Anesthetic Used 4% Lidocaine Solution #2 L Evans -Combined with other wound No -Current Size (cm) - Length 1.4 -Current Size (cm) - Width 1.2 -Current Size (cm) - Depth 0.1 -Total Square Cm 1.68 -Date of Last Picture (Recall this 11/03/18 field) -Photo Taken Yes -Epithelialization None Present -Tunneling No -Undermining/Tunneling No -Circular Undermining No -Exudate Amt None Present -Wound Margin Flat & Intact -Granulation Amt None Present (0 %) -Granulation Quality N/A -Slough/Fibrin Yes -Necrosis Amt Large (67-100%) -Necrotic Tissue Type Adherent Slough -Structure Exposed N/A -Texture (Mer-wound Skin Appearance) Assessed Localized Edema Scarring -Moisture (Mer-wound Skin Appearance Assessed ) Dry/Scaly -Color (Mer-wound Skin Appearance) Assessed Hemosiderin Staining -Temperature (Mer-wound Skin No Abnormality Appearance) (Pt Warm) -Tenderness on Palpation (Mer-wound No Skin Appearance) -Ulcer Cleansing soap and water -Foul Odor after Cleansing No -Anesthetic Used 4% Lidocaine Solution #1 L Knee -Combined with other wound No -Current Size (cm) - Length 3.0 -Current Size (cm) - Width 1.0 -Current Size (cm) - Depth 0.1 -Total Square Cm 3.00 -Date of Last Picture (Recall this 11/03/18 field) -Photo Taken Yes -Tunneling No -Undermining/Tunneling No -Circular Undermining No -Exudate Amt None Present -Wound Margin Flat & Intact -Granulation Amt None Present (0 %) -Granulation Quality N/A -Slough/Fibrin Yes -Necrosis Amt Large (67-100%) -Necrotic Tissue Type Adherent Slough -Structure Exposed N/A -Texture (Mer-wound Skin Appearance) Assessed Localized Edema Scarring -Moisture (Mer-wound Skin Appearance Assessed ) Dry/Scaly -Color (Mer-wound Skin Appearance) Assessed Hemosiderin Staining -Temperature (Mer-wound Skin No Abnormality Appearance) (Pt Warm) -Tenderness on Palpation (Mer-wound No Skin Appearance) -Ulcer Cleansing soap and water -Foul Odor after Cleansing No -Anesthetic Used 4% Lidocaine Solution [Edema Assessment] -Lower Limb Edema Present Yes -Left Calf (cm) 40.0 -Left Ankle (cm) 25.6 WC - Nurse 2 - General Ulcer CM Notes Start: 10/27/18 13:04 Freq: Status: Active Protocol: Activity Type Activity Date Activity User E-Sign Co-Sign Detail Recorded Client Recorded Date Recorded By Document 11/03/18 13:26 [id number] 11/03/18 13:37 [email or web address] 11/03/18 13:26 Wound Center Nurse 2 [Procedure/Treatment] #3 L ANt ankle -Time 13:28 -Correct Patient Yes -Correct Side, Site, Position Yes -Correct Procedure Yes -Procedure Performed Yes -Type of Procedure Debridement -Clinical Debridement Subcutaneous -Post Debridement Size (cm) - Length 0.4 -Post Debridement Size (cm) - Width 1.2 -Post Debridement Size (cm) - Depth 0.1 -Total Square Cm 0.48 -Wound/Ulcer Outcome Not Healed -Ulcer Cleansing Rinsed/ Irrigated with Saline -Foul Odor after Cleansing No -Bioengineered Tissue Yes -Type of bioengineered Tissue EPIFIX -Expiration Date 03/24/23 -Product Lot Number [id number] -Percent Used 100 -Saline Lot Number [id number] -Bleeding Controlled with Pressure -Offloading No -Treatment Response Procedure Tolerated Well #2 L Evans -Time 13:28 -Correct Patient Yes -Correct Side, Site, Position Yes -Correct Procedure Yes -Procedure Performed Yes -Type of Procedure Debridement -Clinical Debridement Subcutaneous -Post Debridement Size (cm) - Length 1.2 -Post Debridement Size (cm) - Width 0.8 -Post Debridement Size (cm) - Depth 0.1 -Total Square Cm 0.96 -Wound/Ulcer Outcome Not Healed -Ulcer Cleansing Rinsed/ Irrigated with Saline -Foul Odor after Cleansing No -Bioengineered Tissue Yes -Type of bioengineered Tissue EPIFIX -Expiration Date 03/24/23 -Product Lot Number [id number] -Percent Used 100 -Saline Lot Number [id number] -Bleeding Controlled with Pressure -Offloading No -Treatment Response Procedure Tolerated Well #1 L Knee -Time 13:29 -Correct Patient Yes -Correct Side, Site, Position Yes -Correct Procedure Yes -Procedure Performed Yes -Type of Procedure Debridement -Clinical Debridement Subcutaneous -Post Debridement Size (cm) - Length 3.0 -Post Debridement Size (cm) - Width 0.7 -Post Debridement Size (cm) - Depth 0.1 -Total Square Cm 2.10 -Wound/Ulcer Outcome Not Healed -Ulcer Cleansing Rinsed/ Irrigated with Saline -Foul Odor after Cleansing No -Bioengineered Tissue Yes -Type of bioengineered Tissue EPIFIX -Expiration Date 03/24/23 -Product Lot Number [id number] -Percent Used 100 -Saline Lot Number [id number] -Bleeding Controlled with Pressure -Offloading No -Treatment Response Procedure Tolerated Well [See Physician Procedure note for Specifics] Pain Scale: 0-10 Numeric [Pain] -Is Patient Pain Free? Yes Musculoskeletal: No Tenderness to Palpation of Joints or Extremities Neurological: Neuro grossly intact Psych/Mental Status: Normal Affect, Appropriate Debridement Note Post-Debridement Measurements/Treatment WC - Nurse 2 - General Ulcer CM Notes Start: 10/27/18 13:04 Freq: Status: Active Protocol: Activity Type Activity Date Activity User E-Sign Co-Sign Detail Recorded Client Recorded Date Recorded By Document 10/27/18 13:43 [id number] 10/27/18 13:46 Document 11/03/18 13:26 [id number] 11/03/18 13:37 10/27/18 11/03/18 13:43 13:26 Wound Center Nurse 2 #3 L ANt ankle -Time 13:43 13:28 -Correct Patient Yes Yes -Correct Side, Site, Position Yes Yes -Correct Procedure Yes Yes -Procedure Performed Yes Yes -Type of Procedure Debridement Debridement -Clinical Debridement Subcutaneous Subcutaneous -Post Debridement Size (cm) - Length 2 0.4 -Post Debridement Size (cm) - Width 2.4 1.2 -Post Debridement Size (cm) - Depth 0.2 0.1 -Total Square Cm 4.8 0.48 -Wound/Ulcer Outcome Not Healed Not Healed -Ulcer Cleansing Rinsed/ Rinsed/ Irrigated with Irrigated with Saline Saline -Foul Odor after Cleansing No No -Bioengineered Tissue Yes Yes -Type of bioengineered Tissue EPIFIX EPIFIX -Expiration Date 02/22/23 03/24/23 -Product Lot Number [id number] -Percent Used 100 100 -Saline Lot Number [id number] -Bleeding Controlled with Pressure Pressure -Offloading No No -Treatment Response Procedure Procedure Tolerated Well Tolerated Well #2 L Evans -Time 13:44 13:28 -Correct Patient Yes Yes -Correct Side, Site, Position Yes Yes -Correct Procedure Yes Yes -Procedure Performed Yes Yes -Type of Procedure Debridement Debridement -Clinical Debridement Subcutaneous Subcutaneous -Post Debridement Size (cm) - Length 1.4 1.2 -Post Debridement Size (cm) - Width 1.0 0.8 -Post Debridement Size (cm) - Depth 0.2 0.1 -Total Square Cm 1.40 0.96 -Wound/Ulcer Outcome Not Healed Not Healed -Ulcer Cleansing Rinsed/ Rinsed/ Irrigated with Irrigated with Saline Saline -Foul Odor after Cleansing No No -Bioengineered Tissue Yes Yes -Type of bioengineered Tissue EPIFIX EPIFIX -Expiration Date 02/22/23 03/24/23 -Product Lot Number [id number] -Percent Used 100 100 -Saline Lot Number [id number] -Bleeding Controlled with Pressure Pressure -Offloading No No -Treatment Response Procedure Procedure Tolerated Well Tolerated Well #1 L Knee -Time 13:45 13:29 -Correct Patient Yes Yes -Correct Side, Site, Position Yes Yes -Correct Procedure Yes Yes -Procedure Performed Yes Yes -Type of Procedure Debridement Debridement -Clinical Debridement Subcutaneous Subcutaneous -Post Debridement Size (cm) - Length 3.3 3.0 -Post Debridement Size (cm) - Width 1.9 0.7 -Post Debridement Size (cm) - Depth 0.1 0.1 -Total Square Cm 6.27 2.10 -Wound/Ulcer Outcome Not Healed Not Healed -Ulcer Cleansing Rinsed/ Rinsed/ Irrigated with Irrigated with Saline Saline -Foul Odor after Cleansing No No -Bioengineered Tissue Yes Yes -Type of bioengineered Tissue EPIFIX EPIFIX -Expiration Date 02/22/23 03/24/23 -Product Lot Number [id number] -Percent Used 100 100 -Saline Lot Number [id number] -Bleeding Controlled with Pressure Pressure -Offloading No No -Treatment Response Procedure Procedure Tolerated Well Tolerated Well Pain Scale: 0-10 Numeric Is Patient Pain Free? Yes Yes Wound debrided: Left knee Laterality: Left Type of Debridement: Excisional debridement Anesthesia Used: 5% Lidocaine Gel Depth: Down to and including healthy tissue, in the subcutaneous layer Percentage of wound debrided: 100 Instrument Used: 5mm curette Tissue Removed: Subcutaneous tissue and slough Severity: Limited To Skin Breakdown Amount of bleeding with debridement: Mild Bleeding Controlled with: Pressure Patient tolerated procedure well - Additional Wound Wound debrided: Left anterior lower leg Laterality: Left Type of Debridement: Excisional debridement Anesthesia Used: 5% Lidocaine Gel Depth: Down to and including healthy tissue, in the subcutaneous layer Percentage of wound debrided: 100 Instrument Used: 5mm curette Tissue Removed: Subcutaneous tissue and slough Severity: Limited To Skin Breakdown Amount of bleeding with debridement: Mild Bleeding Controlled with: Pressure Patient tolerated procedure: Patient tolerated procedure well - Additional Wound Wound debrided: Left medial ankle Laterality: Left Type of Debridement: Excisional debridement Anesthesia Used: 5% Lidocaine Gel Depth: Down to and including healthy tissue, in the subcutaneous layer Percentage of wound debrided: 100 Instrument Used: 5mm curette Tissue Removed: Subcutaneous tissue and slough Severity: Limited To Skin Breakdown Amount of bleeding with debridement: Mild Patient tolerated procedure: Patient tolerated procedure well Assessment/Plan Active Problems Peripheral vascular disease (Chronic) Bilateral lower extremity edema (Chronic) Ulcer of left lower extremity with fat layer exposed (Chronic) Chronic ulcer of left ankle (Chronic) Ulcer of left knee (Chronic) Assessment: 1. Ulcer of left knee. 2. Ulcer of left lower extremity with fat layer exposed. 3. Chronic ulcer of left ankle. 4. Superficial burn. 5. CHF (congestive heart failure). 6. Bilateral lower extremity edema. 7. Peripheral vascular disease Plan: Patient was seen and evaluated in the wound center today. He had a subcutaneous debridement of his three ulcers today and tolerated the proceedure well. The ulcers are looking much better with the Santyl. Today we will apply Epifix #3 to all three uclers. Used 100 % of the product. Patient's left lower leg is much improved with only +1 edema due to the 3M double wrap. Will apply 3M double wrap bilaterally this week to help with the left lower leg edema. Venous study on 10/20/18 showed Segmental valvular incompetence is noted within the greater saphenous veins bilaterally. Chronic venous changes are noted to the left greater saphenous vein. 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 Arterial studies on 10/20/18 LBI= 1.19, RBI=1.04. Triphasic doppler waveforms are noted at the ankle level bilaterally. There is no evidence of significant arterial occlusive disease in the lower extremities bilaterally. He states he is trying to elevate his legs throughout the day. Instructed him that he needs to elevate feet at least twice a day for 30 minutes at time. Also encouraged patient to cut back on his sodium intake. Since he lives in assisted living, he does not have control over his diet. Will also obtain a wound culture was negative for bacterial growth. He will follow up in one week. Code Visit [id number]: 05603 Skin sub graft trnk/arm/leg
[2018-11-10 14:19] VITALS: BP 93/57; PULSE 52; RESP 18; TEMP 36; BMI 33.7
--- NOTE | 2018-11-10 17:14 | PN.PCM_ITS ---
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 History of Wound: On 09/12/18 patient spilled hot water down his left leg. He lives in an assisted living facility, [place], that he needs to do his own wound care. His PCP phoned in [employer] on 09/15 but according to the aid who is with the patient she states the patient has done nothing to the wounds. His PCP saw him on 09/22/18 who referred him to the wound clinic. Patient does have a significant history of CHF and has +3-+4 pitting edema of bilateral lower extremities. Wound care was Epifix. The left knee and left ankle ulcers are healed. The left anterior leg is almost healed. Will use collagen hydrogel to the ulcer. Will apply 3M double wraps bilaterally. Will order compression stockings (30-40 compression) for next week. Follow up in one week. Progress of Wound: Improved. - Physical Exam Vital Signs Temp Pulse Resp BP 96.8 F L 52 L 18 93/57 L 11/10/18 14:19 11/10/18 14:19 11/10/18 14:19 11/10/18 14:19 Wound Measurements and Assessment WC - Nurse 1 - General Ulcer Measurement Start: 10/27/18 13:04 Freq: Status: Active Protocol: Activity Type Activity Date Activity User E-Sign Co-Sign Detail Recorded Client Recorded Date Recorded By Document 11/10/18 14:19 [id number] 11/10/18 14:29 11/10/18 14:19 Wound Center Nurse 1 [Ulcer Assessment] #3 L ANt ankle -Combined with other wound No -Current Size (cm) - Length 0.1 -Current Size (cm) - Width 0.1 -Current Size (cm) - Depth 0.1 -Total Square Cm 0.01 -Classification - Thickness Unclassifiable (Eschar Covered ) #2 L Evans -Current Size (cm) - Length 0.1 -Current Size (cm) - Width 0.1 -Current Size (cm) - Depth 0.1 -Total Square Cm 0.01 -Classification - Thickness Unclassifiable (Eschar Covered ) #1 L Knee -Current Size (cm) - Length 0.1 -Current Size (cm) - Width 0.1 -Current Size (cm) - Depth 0.1 -Total Square Cm 0.01 [Edema Assessment] -Right Calf (cm) 37.5 -Right Ankle (cm) 29 -Left Calf (cm) 39 -Left Ankle (cm) 25.5 WC - Nurse 2 - General Ulcer CM Notes Start: 10/27/18 13:04 Freq: Status: Active Protocol: Activity Type Activity Date Activity User E-Sign Co-Sign Detail Recorded Client Recorded Date Recorded By Document 11/10/18 15:10 [id number] 11/10/18 15:13 11/10/18 15:10 Wound Center Nurse 2 [Procedure/Treatment] #3 L ANt ankle -Correct Patient No -Correct Side, Site, Position No -Correct Procedure No -Procedure Performed No -Post Debridement Size (cm) - Length 0 -Post Debridement Size (cm) - Width 0 -Post Debridement Size (cm) - Depth 0 -Total Square Cm 0 -Wound/Ulcer Outcome Healed- Epithelialized #2 L Evans -Time 15:12 -Correct Patient Yes -Correct Side, Site, Position Yes -Correct Procedure Yes -Procedure Performed Yes -Type of Procedure Debridement -Clinical Debridement Subcutaneous -Post Debridement Size (cm) - Length 0 -Post Debridement Size (cm) - Width 0 -Post Debridement Size (cm) - Depth 0 -Total Square Cm 0 -Wound/Ulcer Outcome Not Healed -Ulcer Cleansing Rinsed/ Irrigated with Saline -Foul Odor after Cleansing No -Bioengineered Tissue No -Bleeding Controlled with Pressure -Offloading No -Treatment Response Procedure Tolerated Well #1 L Knee -Correct Patient No -Correct Side, Site, Position No -Correct Procedure No -Procedure Performed No -Post Debridement Size (cm) - Length 0 -Post Debridement Size (cm) - Width 0 -Post Debridement Size (cm) - Depth 0 -Total Square Cm 0 -Wound/Ulcer Outcome Healed- Epithelialized [See Physician Procedure note for Specifics] Pain Scale: 0-10 Numeric [Pain] -Is Patient Pain Free? Yes Debridement Note Post-Debridement Measurements/Treatment WC - Nurse 2 - General Ulcer CM Notes Start: 10/27/18 13:04 Freq: Status: Active Protocol: Activity Type Activity Date Activity User E-Sign Co-Sign Detail Recorded Client Recorded Date Recorded By Document 10/27/18 13:43 [id number] 10/27/18 13:46 Document 11/03/18 13:26 [id number] 11/03/18 13:37 Document 11/10/18 15:10 [id number] 11/10/18 15:13 10/27/18 11/03/18 11/10/18 13:43 13:26 15:10 Wound Center Nurse 2 #3 L ANt ankle -Time 13:43 13:28 -Correct Patient Yes Yes No -Correct Side, Site, Position Yes Yes No -Correct Procedure Yes Yes No -Procedure Performed Yes Yes No -Type of Procedure Debridement Debridement -Clinical Debridement Subcutaneous Subcutaneous -Post Debridement Size (cm) - Length 2 0.4 0 -Post Debridement Size (cm) - Width 2.4 1.2 0 -Post Debridement Size (cm) - Depth 0.2 0.1 0 -Total Square Cm 4.8 0.48 0 -Wound/Ulcer Outcome Not Healed Not Healed Healed- Epithelialized -Ulcer Cleansing Rinsed/ Rinsed/ Irrigated with Irrigated with Saline Saline -Foul Odor after Cleansing No No -Bioengineered Tissue Yes Yes -Type of bioengineered Tissue EPIFIX EPIFIX -Expiration Date 02/22/23 03/24/23 -Product Lot Number [id number] -Percent Used 100 100 -Saline Lot Number [id number] -Bleeding Controlled with Pressure Pressure -Offloading No No -Treatment Response Procedure Procedure Tolerated Well Tolerated Well #2 L Evans -Time 13:44 13:28 15:12 -Correct Patient Yes Yes Yes -Correct Side, Site, Position Yes Yes Yes -Correct Procedure Yes Yes Yes -Procedure Performed Yes Yes Yes -Type of Procedure Debridement Debridement Debridement -Clinical Debridement Subcutaneous Subcutaneous Subcutaneous -Post Debridement Size (cm) - Length 1.4 1.2 0 -Post Debridement Size (cm) - Width 1.0 0.8 0 -Post Debridement Size (cm) - Depth 0.2 0.1 0 -Total Square Cm 1.40 0.96 0 -Wound/Ulcer Outcome Not Healed Not Healed Not Healed -Ulcer Cleansing Rinsed/ Rinsed/ Rinsed/ Irrigated with Irrigated with Irrigated with Saline Saline Saline -Foul Odor after Cleansing No No No -Bioengineered Tissue Yes Yes No -Type of bioengineered Tissue EPIFIX EPIFIX -Expiration Date 02/22/23 03/24/23 -Product Lot Number [id number] -Percent Used 100 100 -Saline Lot Number [id number] -Bleeding Controlled with Pressure Pressure Pressure -Offloading No No No -Treatment Response Procedure Procedure Procedure Tolerated Well Tolerated Well Tolerated Well #1 L Knee -Time 13:45 13:29 -Correct Patient Yes Yes No -Correct Side, Site, Position Yes Yes No -Correct Procedure Yes Yes No -Procedure Performed Yes Yes No -Type of Procedure Debridement Debridement -Clinical Debridement Subcutaneous Subcutaneous -Post Debridement Size (cm) - Length 3.3 3.0 0 -Post Debridement Size (cm) - Width 1.9 0.7 0 -Post Debridement Size (cm) - Depth 0.1 0.1 0 -Total Square Cm 6.27 2.10 0 -Wound/Ulcer Outcome Not Healed Not Healed Healed- Epithelialized -Ulcer Cleansing Rinsed/ Rinsed/ Irrigated with Irrigated with Saline Saline -Foul Odor after Cleansing No No -Bioengineered Tissue Yes Yes -Type of bioengineered Tissue EPIFIX EPIFIX -Expiration Date 02/22/23 03/24/23 -Product Lot Number [id number] -Percent Used 100 100 -Saline Lot Number [id number] -Bleeding Controlled with Pressure Pressure -Offloading No No -Treatment Response Procedure Procedure Tolerated Well Tolerated Well Pain Scale: 0-10 Numeric Is Patient Pain Free? Yes Yes Yes Assessment/Plan Active Problems Peripheral vascular disease (Chronic) Bilateral lower extremity edema (Chronic) Ulcer of left lower extremity with fat layer exposed (Chronic) Chronic ulcer of left ankle (Chronic) Ulcer of left knee (Chronic) Assessment: 1. Ulcer of left knee. 2. Ulcer of left lower extremity with fat layer exposed. 3. Chronic ulcer of left ankle. 4. Superficial burn. 5. CHF (congestive heart failure). 6. Bilateral lower extremity edema. 7. Peripheral vascular disease Plan: Patient was seen and evaluated in the wound center today. He had a subcutaneous debridement of his three ulcers today and tolerated the proceedure well. The ulcers are looking much better with the Santyl. Today we will apply Epifix #3 to all three uclers. Used 100 % of the product. Patient's left lower leg is much improved with only +1 edema due to the 3M double wrap. Will apply 3M double wrap bilaterally this week to help with the left lower leg edema. Venous study on 10/20/18 showed Segmental valvular incompetence is noted within the greater saphenous veins bilaterally. Chronic venous changes are noted to the left greater saphenous vein. An incompetent top lift trimmer vein is noted in the right calf, located 22 cm proximal to the right medial malleolus. Arterial studies on 10/20/18 LBI= 1.19, RBI=1.04. Triphasic doppler waveforms are noted at the ankle level bilaterally. There is no evidence of significant arterial occlusive disease in the lower extremities bilaterally. He states he is trying to elevate his legs throughout the day. Instructed him that he needs to elevate feet at least twice a day for 30 minutes at time. Also encouraged patient to cut back on his sodium intake. Since he lives in assisted living, he does not have control over his diet. Will also obtain a wound culture was negative for bacterial growth. He will follow up in one week. Code Visit [id number]: [id number] Huong subq tissue 20 sq cm/<
[2018-11-18 15:33] VITALS: BP 105/60; PULSE 52; RESP 18; TEMP 36.4; BMI 33.7
--- NOTE | 2018-11-18 16:22 | PCM.WC.PN ---
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 History of Wound: On 09/12/18 patient spilled hot water down his left leg. He lives in an assisted living facility, [place], that he needs to do his own wound care. His PCP phoned in [employer] on 09/15 but according to the aid who is with the patient she states the patient has done nothing to the wounds. His PCP saw him on 09/22/18 who referred him to the wound clinic. Patient does have a significant history of CHF and has +3-+4 pitting edema of bilateral lower extremities. Wound care was Epifix. The left knee and left ankle ulcers are healed. The left anterior leg is almost healed. Will use collagen hydrogel to the ulcer. Will apply 3M double wraps bilaterally. Will order compression stockings (30-40 compression) for next week. Follow up in one week. Progress of Wound: Healed. - Physical Exam Vital Signs Temp Pulse Resp BP 97.5 F L 52 L 18 105/60 11/18/18 15:33 11/18/18 15:33 11/18/18 15:33 11/18/18 15:33 General: Alert, Oriented x3, Cooperative HEENT: Atraumatic Oral: Moist Mucosa Lungs: Normal air movement Cardiovascular: Regular rate Extremities: Capillary Refill Less than 3 Seconds, Edema - +2 much improved after the 3 M stockings, Peripheral Pulses Normal Skin: Ulcer/ Wound - Left knee, anterior leg and left ankle healed. Wound Measurements and Assessment WC - Nurse 1 - General Ulcer Measurement Start: 10/27/18 13:04 Freq: Status: Active Protocol: Activity Type Activity Date Activity User E-Sign Co-Sign Detail Recorded Client Recorded Date Recorded By Document 11/18/18 15:33 RB [id number] 11/18/18 15:35 RB 11/18/18 15:33 Wound Center Nurse 1 [Ulcer Assessment] #2 L Evans -Combined with other wound No -Current Size (cm) - Length 0 -Current Size (cm) - Width 0 -Current Size (cm) - Depth 0 -Total Square Cm 0 -Photo Taken Yes -Tunneling No -Undermining/Tunneling No -Circular Undermining No -Exudate Amt None Present -Granulation Amt Large (67-100%) -Granulation Quality [place] -Slough/Fibrin Yes -Necrosis Amt Large (67-100%) -Structure Exposed N/A [Edema Assessment] -Lower Limb Edema Present Yes -Right Calf (cm) 37 -Right Ankle (cm) 26.8 -Left Calf (cm) 37.8 -Left Ankle (cm) 24.6 WC - Nurse 2 - General Ulcer CM Notes Start: 10/27/18 13:04 Freq: Status: Active Protocol: Activity Type Activity Date Activity User E-Sign Co-Sign Detail Recorded Client Recorded Date Recorded By Document 11/18/18 15:44 [id number] 11/18/18 15:44 11/18/18 15:44 Wound Center Nurse 2 [Procedure/Treatment] #2 L Evans -Correct Patient No -Correct Side, Site, Position No -Correct Procedure No -Procedure Performed No -Post Debridement Size (cm) - Length 0 -Post Debridement Size (cm) - Width 0 -Post Debridement Size (cm) - Depth 0 -Total Square Cm 0 -Wound/Ulcer Outcome Healed- Epithelialized [See Physician Procedure note for Specifics] Pain Scale: 0-10 Numeric [Pain] -Is Patient Pain Free? Yes Musculoskeletal: No Tenderness to Palpation of Joints or Extremities Neurological: Neuro grossly intact Psych/Mental Status: Normal Affect, Appropriate Debridement Note Post-Debridement Measurements/Treatment WC - Nurse 2 - General Ulcer CM Notes Start: 10/27/18 13:04 Freq: Status: Active Protocol: Activity Type Activity Date Activity User E-Sign Co-Sign Detail Recorded Client Recorded Date Recorded By Document 10/27/18 13:43 [id number] 10/27/18 13:46 Document 11/03/18 13:26 [id number] 11/03/18 13:37 Document 11/10/18 15:10 [id number] 11/10/18 15:13 Document 11/18/18 15:44 [id number] 11/18/18 15:44 10/27/18 11/03/18 11/10/18 13:43 13:26 15:10 Wound Center Nurse 2 #3 L ANt ankle -Time 13:43 13:28 -Correct Patient Yes Yes No -Correct Side, Site, Position Yes Yes No -Correct Procedure Yes Yes No -Procedure Performed Yes Yes No -Type of Procedure Debridement Debridement -Clinical Debridement Subcutaneous Subcutaneous -Post Debridement Size (cm) - Length 2 0.4 0 -Post Debridement Size (cm) - Width 2.4 1.2 0 -Post Debridement Size (cm) - Depth 0.2 0.1 0 -Total Square Cm 4.8 0.48 0 -Wound/Ulcer Outcome Not Healed Not Healed Healed- Epithelialized -Ulcer Cleansing Rinsed/ Rinsed/ Irrigated with Irrigated with Saline Saline -Foul Odor after Cleansing No No -Bioengineered Tissue Yes Yes -Type of bioengineered Tissue EPIFIX EPIFIX -Expiration Date 02/22/23 03/24/23 -Product Lot Number [id number] -Percent Used 100 100 -Saline Lot Number [id number] -Bleeding Controlled with Pressure Pressure -Offloading No No -Treatment Response Procedure Procedure Tolerated Well Tolerated Well #2 L Evans -Time 13:44 13:28 15:12 -Correct Patient Yes Yes Yes -Correct Side, Site, Position Yes Yes Yes -Correct Procedure Yes Yes Yes -Procedure Performed Yes Yes Yes -Type of Procedure Debridement Debridement Debridement -Clinical Debridement Subcutaneous Subcutaneous Subcutaneous -Post Debridement Size (cm) - Length 1.4 1.2 0 -Post Debridement Size (cm) - Width 1.0 0.8 0 -Post Debridement Size (cm) - Depth 0.2 0.1 0 -Total Square Cm 1.40 0.96 0 -Wound/Ulcer Outcome Not Healed Not Healed Not Healed -Ulcer Cleansing Rinsed/ Rinsed/ Rinsed/ Irrigated with Irrigated with Irrigated with Saline Saline Saline -Foul Odor after Cleansing No No No -Bioengineered Tissue Yes Yes No -Type of bioengineered Tissue EPIFIX EPIFIX -Expiration Date 02/22/23 03/24/23 -Product Lot Number [id number] -Percent Used 100 100 -Saline Lot Number [id number] -Bleeding Controlled with Pressure Pressure Pressure -Offloading No No No -Treatment Response Procedure Procedure Procedure Tolerated Well Tolerated Well Tolerated Well #1 L Knee -Time 13:45 13:29 -Correct Patient Yes Yes No -Correct Side, Site, Position Yes Yes No -Correct Procedure Yes Yes No -Procedure Performed Yes Yes No -Type of Procedure Debridement Debridement -Clinical Debridement Subcutaneous Subcutaneous -Post Debridement Size (cm) - Length 3.3 3.0 0 -Post Debridement Size (cm) - Width 1.9 0.7 0 -Post Debridement Size (cm) - Depth 0.1 0.1 0 -Total Square Cm 6.27 2.10 0 -Wound/Ulcer Outcome Not Healed Not Healed Healed- Epithelialized -Ulcer Cleansing Rinsed/ Rinsed/ Irrigated with Irrigated with Saline Saline -Foul Odor after Cleansing No No -Bioengineered Tissue Yes Yes -Type of bioengineered Tissue EPIFIX EPIFIX -Expiration Date 02/22/23 03/24/23 -Product Lot Number [id number] -Percent Used 100 100 -Saline Lot Number [id number] -Bleeding Controlled with Pressure Pressure -Offloading No No -Treatment Response Procedure Procedure Tolerated Well Tolerated Well Pain Scale: 0-10 Numeric Is Patient Pain Free? Yes Yes Yes 11/18/18 15:44 Wound Center Nurse 2 #3 L ANt ankle -Time -Correct Patient -Correct Side, Site, Position -Correct Procedure -Procedure Performed -Type of Procedure -Clinical Debridement -Post Debridement Size (cm) - Length -Post Debridement Size (cm) - Width -Post Debridement Size (cm) - Depth -Total Square Cm -Wound/Ulcer Outcome -Ulcer Cleansing -Foul Odor after Cleansing -Bioengineered Tissue -Type of bioengineered Tissue -Expiration Date -Product Lot Number -Percent Used -Saline Lot Number -Bleeding Controlled with -Offloading -Treatment Response #2 L Evans -Time -Correct Patient No -Correct Side, Site, Position No -Correct Procedure No -Procedure Performed No -Type of Procedure -Clinical Debridement -Post Debridement Size (cm) - Length 0 -Post Debridement Size (cm) - Width 0 -Post Debridement Size (cm) - Depth 0 -Total Square Cm 0 -Wound/Ulcer Outcome Healed- Epithelialized -Ulcer Cleansing -Foul Odor after Cleansing -Bioengineered Tissue -Type of bioengineered Tissue -Expiration Date -Product Lot Number -Percent Used -Saline Lot Number -Bleeding Controlled with -Offloading -Treatment Response #1 L Knee -Time -Correct Patient -Correct Side, Site, Position -Correct Procedure -Procedure Performed -Type of Procedure -Clinical Debridement -Post Debridement Size (cm) - Length -Post Debridement Size (cm) - Width -Post Debridement Size (cm) - Depth -Total Square Cm -Wound/Ulcer Outcome -Ulcer Cleansing -Foul Odor after Cleansing -Bioengineered Tissue -Type of bioengineered Tissue -Expiration Date -Product Lot Number -Percent Used -Saline Lot Number -Bleeding Controlled with -Offloading -Treatment Response Pain Scale: 0-10 Numeric Is Patient Pain Free? Yes No debridement was completed today Assessment/Plan Active Problems Peripheral vascular disease (Chronic) Bilateral lower extremity edema (Chronic) Ulcer of left lower extremity with fat layer exposed (Chronic) Chronic ulcer of left ankle (Chronic) Ulcer of left knee (Chronic) Assessment: 1. Ulcer of left knee. 2. Ulcer of left lower extremity with fat layer exposed. 3. Chronic ulcer of left ankle. 4. Superficial burn. 5. CHF (congestive heart failure). 6. Bilateral lower extremity edema. 7. Peripheral vascular disease Plan: Patient was seen and evaluated in the wound center today. He is healed today, all 3 ulcers. Patient's bilateral lower legs are much improved with only +1 edema due to the 3M double wrap. Ordered compression stockings that did not fit patient, will return and reorder them. Venous study on 10/20/18 showed Segmental valvular incompetence is noted within the greater saphenous veins bilaterally. Chronic venous changes are noted to the left greater saphenous vein. An incompetent electrician rectifier maintenance vein is noted in the right calf, located 22 cm proximal to the right medial malleolus. Arterial studies on 10/20/18 LBI= 1.19, RBI=1.04. Triphasic doppler waveforms are noted at the ankle level bilaterally. There is no evidence of significant arterial occlusive disease in the lower extremities bilaterally. He states he is trying to elevate his legs throughout the day. Instructed him that he needs to elevate feet at least twice a day for 30 minutes at time. Also encouraged patient to cut back on his sodium intake. Since he lives in assisted living, he does not have control over his diet. He will follow up in one week to make sure new compression stockings fit. Will place him in double tubigrips for this week. Code Visit Office Visits / Consults: [id number] OV L3 Est
== END 2018-11-21 23:59 ==
LOC: WC 14:30
PROVIDERS: Family Provider Family Medicine; PCP Family Medicine; Referring Provider Nurse Practitioner Family; Visit Provider Nurse Practitioner Family
DX: I73.9 Peripheral vascular disease, unspecified (principal); R60.0 Localized edema; I50.9 Heart failure, unspecified; L97.822 Non-pressure chronic ulcer of other part of left lower leg with fat layer exposed; L97.321 Non-pressure chronic ulcer of left ankle limited to breakdown of skin; T24.092 Burn of unspecified degree of multiple sites of left lower limb, except ankle and foot; X11.8XXS Contact with other hot tap-water, sequela
CPT/HCPCS: 11042; 11045; 15271; 29581; 99212; Q4186; G0463

== ENCOUNTER 2019-05-19 13:30 | Outpatient (RCR) | payer MEDICARE, OTHER, SELFPAY ==
[2019-05-05 14:41] VITALS: BP 99/60; PULSE 63; RESP 18; TEMP 35.7; BMI 33.7
--- NOTE | 2019-05-05 16:17 | HP.PCM_ITS ---
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 Current Visit: Yes Code(s): L97.922 - Non-pressure chronic ulcer of unspecified part of left lower leg with fat layer exposed (2) Bilateral lower extremity edema Status: Chronic Current Visit: Yes Code(s): R60.0 - Localized edema (3) Dermatitis Status: Chronic Current Visit: Yes Code(s): L30.9 - Dermatitis, unspecified (4) Peripheral vascular disease Status: Chronic Current Visit: Yes Code(s): I73.9 - Peripheral vascular disease, unspecified (5) CHF (congestive heart failure) Status: Chronic Current Visit: Yes Code(s): I50.9 - Heart failure, unspecified History of Present Illness Date of Service: 05/05/19 Chief Complaint: Bilateral lower extremity edema with opened areas on left anterior lower leg and a cluster of opened areas on left posterior leg. History of Wound: Patient comes in for evaluation of ulcers on his left lower leg. He also has significant edema and dry flaking skin. He lives in an assisted living facility, [facility], that he needs to do his own wound care. Patient does have a significant history of CHF and has +3-+4 pitting edema of bilateral lower extremities. Venous study on 10/20/18 showed Segmental valvular incompetence is noted within the greater saphenous veins bilaterally. Chronic venous changes are noted to the left greater saphenous vein. An incompetent apparatus engineering technologist vein is noted in the right calf, located 22 cm proximal to the right medial malleolus. Arterial studies on 10/20/18 LBI= 1.19, RBI=1.04. Triphasic doppler waveforms are noted at the ankle level bilaterally. There is no evidence of significant arterial occlusive disease in the lower extremities bilaterally. He does spend most of his day sitting in a chair with his legs dangling. He states he does not having any compression stockings, which were ordered when he was here in the spring. 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 [Ecotrin] 81 mg PO DAILY@0800 11/03/13 Furosemide [Lasix] 40 mg PO BREAKFAST 11/03/13 Levetiracetam 500 mg PO BID 11/03/13 Lisinopril [Zestril] 5 mg PO DAILY 11/03/13 Oxcarbazepine [Trileptal] 600 mg PO BID 11/03/13 Ropinirole HCl [Requip] 0.25 mg PO QHS 11/03/13 Spironolactone [Aldactone] 12.5 mg PO DAILY 11/03/13 Tamsulosin HCl [Flomax] 0.4 mg PO DAILY 11/03/13 Brimonidine Tartrate 0.2% 1 drop EACH EYE BID 09/29/18 [Brimonidine 0.2% 5Ml Bottle] Cholecalciferol (Vitamin D3) 2,000 unit PO DAILY 09/29/18 [Vitamin D3] Ferrous Sulfate 325 mg PO DAILY 09/29/18 Fluticasone 0.05% [Flonase Nasal 2 spray NASAL DAILY 09/29/18 [place]] Furosemide [Lasix] 40 mg PO DINNER 09/29/18 Gabapentin [Neurontin] 300 mg PO TIDCM 09/29/18 Gluc/Chondr-MSM 7/C/[place] 1 each PO DAILY 09/29/18 [Eql Glucosam-Chondro Complx Tb] Latanoprost 0.005% [Xalatan 1 drop EACH EYE QHS 09/29/18 Opthalmic] Levothyroxine [Synthroid] 75 mcg PO DAILY 09/29/18 Metoprolol Tartrate 12.5 mg PO DAILY 09/29/18 Potassium Chloride [K-Dur] 20 meq PO DAILY 09/29/18 Psyllium [Metamucil] 1 packet PO DAILY 09/29/18 Timolol 0.5% [Timoptic] 1 drop EACH EYE BID 09/29/18 Acetaminophen [Pharbetol] 1,000 mg PO Q6H PRN 05/05/19 Hydrocodone/Acetaminophen [[place] 1 ea PO Q4H PRN 05/05/19 5-325 Tablet] traMADol [Ultram (G)] 50 mg PO Q6H PRN PRN 05/05/19 Lives: Longterm - assisted living Smoking Status: Never smoker Alcohol: None Drugs: None Review of Systems Constitutional: Denies: Chills, Fever, Weight Change Eyes: Denies: Pain, Vision Change HEENT: Denies: Difficulty Hearing, Difficulty Swallowing, Sinus Congestion Cardiovascular: Denies: Chest Pain, Palpitations Respiratory: Denies: Cough, Shortness of Breath Genitourinary: Reports: Urgency Musculoskeletal: Reports: Joint stiffness Skin: Reports: Dryness, Wounds - Open area on left anterior lower leg cluster of open areas on the left posterior leg. Neurological: Denies: Blurred vision, Change in Speech, Confusion Psychiatric: Denies: Anxiety, Depression Endocrine: Denies: Heat/ Cold Intolerance, Polydipsia, Polyuria - Physical Exam Vital Signs Temp Pulse Resp BP 96.2 F L 63 18 99/60 05/05/19 14:41 05/05/19 14:41 05/05/19 14:41 05/05/19 14:41 General: Alert, Oriented x3 HEENT: Atraumatic Oral: Moist Mucosa Lungs: Normal air movement Cardiovascular: Regular rate Abdomen: Obese Extremities: Edema - +3 to +4 pitting edema Skin: Ulcer/ Wound - Open area on left anterior lower leg and a cluster of open areas on the posterior portion of the left leg Wound Measurements and Assessment WC - Nurse 1 - General Ulcer Measurement Start: 05/05/19 14:41 Freq: Status: Active Protocol: Activity Type Activity Date Activity User E-Sign Co-Sign Detail Recorded Client Recorded Date Recorded By Document 05/05/19 14:41 [facility] [id number] 05/05/19 14:47 [facility] 05/05/19 14:41 Wound Center Nurse 1 [Ulcer Assessment] #5- L POST LE CLUSTER -Combined with other wound No -Current Size (cm) - Length 11.5 -Current Size (cm) - Width 4 -Current Size (cm) - Depth 0.1 -Total Square Cm 46.0 -Date of Last Picture (Recall this 05/05/19 field) -Photo Taken Yes -Epithelialization None Present -Tunneling No -Undermining/Tunneling No -Circular Undermining No -Exudate Amt None Present -Wound Margin Distinct, Outline Attached -Granulation Amt None Present (0 %) -Slough/Fibrin Yes -Necrosis Amt Large (67-100%) -Necrotic Tissue Type Eschar -Texture (Mer-wound Skin Appearance) Assessed, Scarring -Moisture (Mer-wound Skin Appearance Assessed ) -Color (Mer-wound Skin Appearance) Assessed, Hemosiderin Staining -Temperature (Mer-wound Skin No Abnormality Appearance) (Pt Warm) -Tenderness on Palpation (Mer-wound No Skin Appearance) -Ulcer Cleansing Rinsed/ Irrigated with Saline -Foul Odor after Cleansing No -Anesthetic Used 4% Lidocaine Solution #4- L DOUGLAS -Combined with other wound No -Current Size (cm) - Length 1.1 -Current Size (cm) - Width 1.5 -Current Size (cm) - Depth 0.1 -Total Square Cm 1.65 -Date of Last Picture (Recall this 05/05/19 field) -Photo Taken Yes -Epithelialization None Present -Tunneling No -Undermining/Tunneling No -Circular Undermining No -Exudate Amt None Present -Wound Margin Distinct, Outline Attached -Granulation Amt None Present (0 %) -Slough/Fibrin Yes -Necrosis Amt Large (67-100%) -Necrotic Tissue Type Eschar -Texture (Mer-wound Skin Appearance) Assessed, Scarring -Moisture (Mer-wound Skin Appearance Assessed,Dry/ ) Scaly -Color (Mer-wound Skin Appearance) Assessed, Hemosiderin Staining -Temperature (Mer-wound Skin No Abnormality Appearance) (Pt Warm) -Tenderness on Palpation (Mer-wound No Skin Appearance) -Ulcer Cleansing Rinsed/ Irrigated with Saline -Foul Odor after Cleansing No -Anesthetic Used 4% Lidocaine Solution [Edema Assessment] -Lower Limb Edema Present Yes -Right Calf (cm) 40 -Right Ankle (cm) 32.9 -Left Calf (cm) 42 -Left Ankle (cm) 29 WC - Nurse 2 - General Ulcer CM Notes Start: 05/05/19 14:41 Freq: Status: Active Protocol: Activity Type Activity Date Activity User E-Sign Co-Sign Detail Recorded Client Recorded Date Recorded By Document 05/05/19 15:06 [facility] [id number] 05/05/19 15:21 R[facility]INDER 05/05/19 15:06 Wound Center Nurse 2 [Procedure/Treatment] #5- L POST LE CLUSTER -Time 15:15 -Correct Patient Yes -Correct Side, Site, Position Yes -Correct Procedure Yes -Procedure Performed Yes -Type of Procedure Debridement -Clinical Debridement Subcutaneous -Post Debridement Size (cm) - Length 17.0 -Post Debridement Size (cm) - Width 2.2 -Post Debridement Size (cm) - Depth 0.1 -Total Square Cm 37.40 -Wound/Ulcer Outcome Not Healed -Ulcer Cleansing Rinsed/ Irrigated with Saline -Foul Odor after Cleansing No -Bioengineered Tissue No -Bleeding Controlled with Pressure -Offloading No -Treatment Response Procedure Tolerated Well #4- L DOUGLAS -Time 15:07 -Correct Patient Yes -Correct Side, Site, Position Yes -Correct Procedure Yes -Procedure Performed Yes -Type of Procedure Debridement -Clinical Debridement Subcutaneous -Post Debridement Size (cm) - Length 1.5 -Post Debridement Size (cm) - Width 1.5 -Post Debridement Size (cm) - Depth 0.1 -Total Square Cm 2.25 -Wound/Ulcer Outcome Not Healed -Ulcer Cleansing Rinsed/ Irrigated with Saline -Bioengineered Tissue No -Bleeding Controlled with Pressure -Offloading No -Treatment Response Procedure Tolerated Well [See Physician Procedure note for Specifics] Pain Scale: 0-10 Numeric [Pain] -Is Patient Pain Free? Yes Musculoskeletal: No Muscle Wasting Neurological: Neuro grossly intact Psych/Mental Status: Normal Affect, Appropriate Debridement Note Post-Debridement Measurements/Treatment WC - Nurse 2 - General Ulcer CM Notes Start: 05/05/19 14:41 Freq: Status: Active Protocol: Activity Type Activity Date Activity User E-Sign Co-Sign Detail Recorded Client Recorded Date Recorded By Document 05/05/19 15:06 [id number] 05/05/19 15:21 05/05/19 15:06 Wound Center Nurse 2 #5- L POST LE CLUSTER -Time 15:15 -Correct Patient Yes -Correct Side, Site, Position Yes -Correct Procedure Yes -Procedure Performed Yes -Type of Procedure Debridement -Clinical Debridement Subcutaneous -Post Debridement Size (cm) - Length 17.0 -Post Debridement Size (cm) - Width 2.2 -Post Debridement Size (cm) - Depth 0.1 -Total Square Cm 37.40 -Wound/Ulcer Outcome Not Healed -Ulcer Cleansing Rinsed/ Irrigated with Saline -Foul Odor after Cleansing No -Bioengineered Tissue No -Bleeding Controlled with Pressure -Offloading No -Treatment Response Procedure Tolerated Well #4- L DOUGLAS -Time 15:07 -Correct Patient Yes -Correct Side, Site, Position Yes -Correct Procedure Yes -Procedure Performed Yes -Type of Procedure Debridement -Clinical Debridement Subcutaneous -Post Debridement Size (cm) - Length 1.5 -Post Debridement Size (cm) - Width 1.5 -Post Debridement Size (cm) - Depth 0.1 -Total Square Cm 2.25 -Wound/Ulcer Outcome Not Healed -Ulcer Cleansing Rinsed/ Irrigated with Saline -Bioengineered Tissue No -Bleeding Controlled with Pressure -Offloading No -Treatment Response Procedure Tolerated Well Pain Scale: 0-10 Numeric Is Patient Pain Free? Yes Wound debrided: anterior lower leg Laterality: Left Type of Debridement: Excisional debridement Anesthesia Used: 5% Lidocaine Gel Depth: Down to and including healthy tissue, in the subcutaneous layer Percentage of wound debrided: 100 Instrument Used: 3mm curette Tissue Removed: Subcutaneous tissue and slough Severity: Limited To Skin Breakdown Amount of bleeding with debridement: Mild Bleeding Controlled with: Pressure Patient tolerated procedure well - Additional Wound Wound debrided: Left posterior leg cluster open areas Laterality: Left Type of Debridement: Excisional debridement Anesthesia Used: 5% Lidocaine Gel Depth: Down to and including healthy tissue, in the subcutaneous layer Percentage of wound debrided: 100 Instrument Used: 5mm curette Tissue Removed: Subcutaneous tissue and slough Severity: Limited To Skin Breakdown Amount of bleeding with debridement: Mild Bleeding Controlled with: Compression and gauze Patient tolerated procedure: Patient tolerated procedure well Assessment/Plan Active Problems CHF (congestive heart failure) (Chronic) Peripheral vascular disease (Chronic) Bilateral lower extremity edema (Chronic) 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 Ulcer of left lower extremity with fat layer exposed. 2. Bilateral lower extremity edema. 3. Peripheral vascular disease. 4. Dermatitis. 5. CHF (congestive heart failure) Plan: Patient was seen and evaluated in the wound center today. A subcutaneous debridement was performed, which patient tolerated well. Patient has edema +3-4 pitting bilaterally lower extremities. 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 Venous study on 10/20/18 showed Segmental valvular incompetence is noted within the greater saphenous veins bilaterally. Chronic venous changes are noted to the left greater saphenous vein. An incompetent apparatus engineering technologist vein is noted in the right calf, located 22 cm proximal to the right medial malleolus. Arterial studies on 10/20/18 LBI= 1.19, RBI=1.04. Triphasic doppler waveforms are noted at the ankle level bilaterally. There is no evidence of significant arterial occlusive disease in the lower extremities bilaterally. Instructed him that he needs to elevate feet at least twice a day for 30 minutes at time. Also encouraged patient to cut back on his sodium intake. Since he lives in assisted living, he does not have control over his diet. He states that he has not been wearing compression stockings because he does not have any. They were ordered when he was here in the spring. Will place him in double tubigrips for this week. We will refer him to Dr. Bee for further evaluation of his vascular status. Wound care will be collagen hydrogel to the open areas daily. Will order Lac-Hydrin lotion to lower extremity dry flaky skin and feet bilaterally. Follow-up in 1 week. Code Visit Office Visits / Consults: [id number] OV L3 Est - 25 modifier 111xxx-113xx: [id number] Huong subq tissue 20 sq cm/< Add On Codes: [id number] Huong subq tissue add-on
[2019-05-19 13:49] VITALS: BP 104/69; PULSE 51; RESP 18; TEMP 36.2; BMI 33.7
--- NOTE | 2019-05-19 16:57 | PN.PCM_ITS ---
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 Code(s): L97.922 - Non-pressure chronic ulcer of unspecified part of left lower leg with fat layer exposed (2) Bilateral lower extremity edema Status: Chronic Code(s): R60.0 - Localized edema (3) Dermatitis Status: Chronic Code(s): L30.9 - Dermatitis, unspecified (4) Peripheral vascular disease Status: Chronic Code(s): I73.9 - Peripheral vascular disease, unspecified (5) CHF (congestive heart failure) Status: Chronic Code(s): I50.9 - Heart failure, unspecified Type of Wound Date of Service: 05/19/19 Chief Complaint: Bilateral lower extremity edema with opened areas on left anterior lower leg and a cluster of opened areas on left posterior leg. History of Wound: Patient comes in for evaluation of ulcers on his left lower leg. He also has significant edema and dry flaking skin. He lives in an assisted living facility, [place], that he needs to do his own wound care. Patient does have a significant history of CHF and has +3-+4 pitting edema of bilateral lower extremities. Venous study on 10/20/18 showed Segmental valvular incompetence is noted within the greater saphenous veins bilaterally. Chronic venous changes are noted to the left greater saphenous vein. 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 Arterial studies on 10/20/18 LBI= 1.19, RBI=1.04. Triphasic doppler waveforms are noted at the ankle level bilaterally. There is no evidence of significant arterial occlusive disease in the lower extremities bilaterally. He does spend most of his day sitting in a chair with his legs dangling. He states he does not having any compression stockings, which were ordered when he was here in the spring. Left posterior leg cluster healed today. Left anterior lower leg ulcer wound care is collagen hydrogel. Progress of Wound: Posterior left leg cluster ulcer is healed. Left anterior lower leg is improved. - Physical Exam Vital Signs Temp Pulse Resp BP 97.1 F L 51 L 18 104/69 05/19/19 13:49 05/19/19 13:49 05/19/19 13:49 05/19/19 13:49 General: Alert, Oriented x3, Cooperative HEENT: Atraumatic Oral: Moist Mucosa Lungs: Normal air movement Cardiovascular: Regular rate Abdomen: Obese Extremities: Capillary Refill Less than 3 Seconds, Diminished Peripheral Pulses, Edema Skin: Ulcer/ Wound - left anterior lower leg Wound Measurements and Assessment WC - Nurse 1 - General Ulcer Measurement Start: 05/05/19 14:41 Freq: Status: Active Protocol: Activity Type Activity Date Activity User E-Sign Co-Sign Detail Recorded Client Recorded Date Recorded By Document 05/19/19 13:49 [facility] [id number] 05/19/19 13:52 [facility] 05/19/19 13:49 Wound Center Nurse 1 [Ulcer Assessment] #5- L POST LE CLUSTER -Combined with other wound No -Current Size (cm) - Length 0.1 -Current Size (cm) - Width 0.1 -Current Size (cm) - Depth 0.1 -Total Square Cm 0.01 -Photo Taken No -Epithelialization Large 67-100% -Tunneling No -Undermining/Tunneling No -Circular Undermining No -Exudate Amt None Present -Wound Margin Distinct, Outline Attached -Granulation Amt None Present (0 %) -Slough/Fibrin Yes -Necrosis Amt Small (1-33%) -Necrotic Tissue Type Eschar -Texture (Mer-wound Skin Appearance) Assessed, Scarring -Moisture (Mer-wound Skin Appearance Assessed,Dry/ ) Scaly -Color (Mer-wound Skin Appearance) Assessed -Temperature (Mer-wound Skin No Abnormality Appearance) (Pt Warm) -Tenderness on Palpation (Mer-wound No Skin Appearance) -Ulcer Cleansing Rinsed/ Irrigated with Saline -Foul Odor after Cleansing No -Anesthetic Used 4% Lidocaine Solution #4- L DOUGLAS -Combined with other wound No -Current Size (cm) - Length 0.6 -Current Size (cm) - Width 0.3 -Current Size (cm) - Depth 0.1 -Total Square Cm 0.18 -Photo Taken No -Epithelialization Small 1-33% -Tunneling No -Undermining/Tunneling No -Circular Undermining No -Exudate Amt Small -Exudate Type Sanguineous -Wound Margin Distinct, Outline Attached -Granulation Amt Small (1-33%) -Granulation Quality Red -Slough/Fibrin No -Necrosis Amt None Present (0 %) -Texture (Mer-wound Skin Appearance) Assessed, Scarring -Moisture (Mer-wound Skin Appearance Assessed,Dry/ ) Scaly -Color (Mer-wound Skin Appearance) Assessed, Hemosiderin Staining -Temperature (Mer-wound Skin No Abnormality Appearance) (Pt Warm) -Tenderness on Palpation (Mer-wound No Skin Appearance) -Ulcer Cleansing Rinsed/ Irrigated with Saline -Foul Odor after Cleansing No -Anesthetic Used 4% Lidocaine Solution [Edema Assessment] -Lower Limb Edema Present Yes -Left Calf (cm) 42 -Left Ankle (cm) 28.4 WC - Nurse 2 - General Ulcer CM Notes Start: 05/05/19 14:41 Freq: Status: Active Protocol: Activity Type Activity Date Activity User E-Sign Co-Sign Detail Recorded Client Recorded Date Recorded By Document 05/19/19 14:41 [facility] [id number] 05/19/19 14:42 [facility]ER 05/19/19 14:41 Wound Center Nurse 2 [Procedure/Treatment] #5- L POST LE CLUSTER -Correct Patient No -Correct Side, Site, Position No -Correct Procedure No -Procedure Performed No -Post Debridement Size (cm) - Length 0 -Post Debridement Size (cm) - Width 0 -Post Debridement Size (cm) - Depth 0 -Total Square Cm 0 -Wound/Ulcer Outcome Healed- Epithelialized #4- L DOUGLAS -Time 14:41 -Correct Patient Yes -Correct Side, Site, Position Yes -Correct Procedure Yes -Procedure Performed Yes -Type of Procedure Debridement -Clinical Debridement Subcutaneous -Post Debridement Size (cm) - Length 1 -Post Debridement Size (cm) - Width 0.5 -Post Debridement Size (cm) - Depth 0.3 -Total Square Cm 0.5 -Wound/Ulcer Outcome Not Healed -Ulcer Cleansing Rinsed/ Irrigated with Saline -Foul Odor after Cleansing No -Bioengineered Tissue No -Bleeding Controlled with Pressure -Offloading No -Treatment Response Procedure Tolerated Well [See Physician Procedure note for Specifics] Pain Scale: 0-10 Numeric [Pain] -Is Patient Pain Free? Yes Musculoskeletal: No Muscle Wasting Neurological: Neuro grossly intact Psych/Mental Status: Normal Affect, Appropriate Debridement Note Post-Debridement Measurements/Treatment LIZZIE - Nurse 2 - General Ulcer CM Notes Start: 05/05/19 14:41 Freq: Status: Active Protocol: Activity Type Activity Date Activity User E-Sign Co-Sign Detail Recorded Client Recorded Date Recorded By Document 05/05/19 15:06 [facility]ER [id number] 05/05/19 15:21 Document 05/19/19 14:41 [id number] 05/19/19 14:42 05/05/19 05/19/19 15:06 14:41 Wound Center Nurse 2 #5- L POST LE CLUSTER -Time 15:15 -Correct Patient Yes No -Correct Side, Site, Position Yes No -Correct Procedure Yes No -Procedure Performed Yes No -Type of Procedure Debridement -Clinical Debridement Subcutaneous -Post Debridement Size (cm) - Length 17.0 0 -Post Debridement Size (cm) - Width 2.2 0 -Post Debridement Size (cm) - Depth 0.1 0 -Total Square Cm 37.40 0 -Wound/Ulcer Outcome Not Healed Healed- Epithelialized -Ulcer Cleansing Rinsed/ Irrigated with Saline -Foul Odor after Cleansing No -Bioengineered Tissue No -Bleeding Controlled with Pressure -Offloading No -Treatment Response Procedure Tolerated Well #4- L DOUGLAS -Time 15:07 14:41 -Correct Patient Yes Yes -Correct Side, Site, Position Yes Yes -Correct Procedure Yes Yes -Procedure Performed Yes Yes -Type of Procedure Debridement Debridement -Clinical Debridement Subcutaneous Subcutaneous -Post Debridement Size (cm) - Length 1.5 1 -Post Debridement Size (cm) - Width 1.5 0.5 -Post Debridement Size (cm) - Depth 0.1 0.3 -Total Square Cm 2.25 0.5 -Wound/Ulcer Outcome Not Healed Not Healed -Ulcer Cleansing Rinsed/ Rinsed/ Irrigated with Irrigated with Saline Saline -Foul Odor after Cleansing No -Bioengineered Tissue No No -Bleeding Controlled with Pressure Pressure -Offloading No No -Treatment Response Procedure Procedure Tolerated Well Tolerated Well Pain Scale: 0-10 Numeric Is Patient Pain Free? Yes Yes Wound debrided: left lower anterior leg ulcer Laterality: Left Type of Debridement: Excisional debridement Anesthesia Used: 5% Lidocaine Gel Depth: Down to and including healthy tissue, in the subcutaneous layer Percentage of wound debrided: 100 Instrument Used: 5mm curette Tissue Removed: Subcutaneous tissue and slough Severity: Fat Layer Exposed Amount of bleeding with debridement: Mild Bleeding Controlled with: Pressure Patient tolerated procedure well Assessment/Plan Assessment: 1. Ulcer of left lower extremity with fat layer exposed. 2. Bilateral lower extremity edema. 3. Peripheral vascular disease. 4. Dermatitis. 5. CHF (congestive heart failure) Plan: Patient was seen and evaluated in the wound center today. A subcutaneous debridement was performed, which patient tolerated well. Patient has edema +3-4 pitting bilaterally lower extremities. 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 Venous study on 10/20/18 showed Segmental valvular incompetence is noted within the greater saphenous veins bilaterally. Chronic venous changes are noted to the left greater saphenous vein. 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 Arterial studies on 10/20/18 LBI= 1.19, RBI=1.04. Triphasic doppler waveforms are noted at the ankle level bilaterally. There is no evidence of significant arterial occlusive disease in the lower extremities bilaterally. Instructed him that he needs to elevate feet at least twice a day for 30 minutes at time. Also encouraged patient to cut back on his sodium intake. Since he lives in assisted living, he does not have control over his diet. He states that he has not been wearing compression stockings because he does not have any. They were ordered when he was here in the spring. Will place him in double tubigrips for this week. We will refer him to Dr. Bee for further evaluation of his vascular status. Wound care will be collagen hydrogel to the open areas daily. Will order Lac-Hydrin lotion to lower extremity dry flaky skin and feet bilaterally. Follow-up in 1 week. Code Visit [id number]: [id number] Huong subq tissue 20 sq cm/<
== END 2019-05-23 23:59 ==
LOC: WC 13:30
PROVIDERS: Family Provider Family Medicine; PCP Family Medicine; Visit Provider Nurse Practitioner Family
DX: I73.9 Peripheral vascular disease, unspecified (principal); I50.9 Heart failure, unspecified; L97.822 Non-pressure chronic ulcer of other part of left lower leg with fat layer exposed; R60.0 Localized edema; L30.9 Dermatitis, unspecified; Z79.899 Other long term (current) drug therapy; Z79.82 Long term (current) use of aspirin; Z79.51 Long term (current) use of inhaled steroids; L97.821 Non-pressure chronic ulcer of other part of left lower leg limited to breakdown of skin
CPT/HCPCS: 11042; 11045; 99213; G0463

== ENCOUNTER 2019-06-09 13:30 | Outpatient (RCR) | payer MEDICARE, OTHER, SELFPAY ==
[2019-05-24 01:16] VITALS: BP 104/69; PULSE 51; RESP 18; TEMP 36.2
[2019-05-26 13:36] VITALS: BP 94/57; PULSE 52; RESP 20; TEMP 36.6; BMI 33.7
--- NOTE | 2019-05-26 14:23 | PCM.WC.PN ---
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 History of Wound: Patient comes in for evaluation of ulcers on his left lower leg. He also has significant edema and dry flaking skin. He lives in an assisted living facility, [place], that he needs to do his own wound care. Patient does have a history of CHF and has +3-+4 pitting edema of bilateral lower extremities. Venous study on 10/20/18 showed Segmental valvular incompetence is noted within the greater saphenous veins bilaterally. Chronic venous changes are noted to the left greater saphenous vein. An incompetent certified technician specialist vein is noted in the right calf, located 22 cm proximal to the right medial malleolus. Arterial studies on 10/20/18 LBI= 1.19, RBI=1.04. Triphasic doppler waveforms are noted at the ankle level bilaterally. There is no evidence of significant arterial occlusive disease in the lower extremities bilaterally. He saw Dr. Bee last week who will have him follow-up in 3 months. He does spend most of his day sitting in a chair with his legs dangling. He states he does not having any compression stockings, which were ordered when he was here in the spring. Left posterior leg cluster healed today. Left anterior lower leg ulcer wound care is collagen hydrogel cover with adaptic. Denies fevers. Has a good appetite. Progress of Wound: Posterior left leg cluster ulcer is healed. Left anterior lower leg is stable. - Physical Exam Vital Signs Temp Pulse Resp BP 97.9 F 52 L 20 H 94/57 L 05/26/19 13:36 05/26/19 13:36 05/26/19 13:36 05/26/19 13:36 General: Alert, Oriented x3 HEENT: Atraumatic Oral: Moist Mucosa Lungs: Normal air movement Cardiovascular: Regular rate Extremities: Capillary Refill Less than 3 Seconds, Diminished Peripheral Pulses, Edema Skin: Ulcer/ Wound - Left anterior leg ulcer Wound Measurements and Assessment WC - Nurse 1 - General Ulcer Measurement Start: 05/26/19 13:36 Freq: Status: Active Protocol: Activity Type Activity Date Activity User E-Sign Co-Sign Detail Recorded Client Recorded Date Recorded By Document 05/26/19 13:36 DL [id number] 05/26/19 13:43 DL 05/26/19 13:36 Wound Center Nurse 1 [Ulcer Assessment] #4- L DOUGLAS -Current Size (cm) - Length 1.1 -Current Size (cm) - Width 0.7 -Current Size (cm) - Depth 0.1 -Total Square Cm 0.77 -Photo Taken No -Exudate Amt Small -Exudate Type Serosanguineous -Wound Margin Distinct, Outline Attached -Granulation Amt Large (67-100%) -Granulation Quality Red -Necrosis Amt None Present (0 %) -Structure Exposed N/A -Texture (Mer-wound Skin Appearance) Scarring -Moisture (Mer-wound Skin Appearance Dry/Scaly ) -Color (Mer-wound Skin Appearance) Hemosiderin Staining -Temperature (Mer-wound Skin No Abnormality Appearance) (Pt Warm) -Ulcer Cleansing Rinsed/ Irrigated with Saline -Foul Odor after Cleansing No -Anesthetic Used 5% Lidocaine Gel [Edema Assessment] -Left Calf (cm) 40 -Left Ankle (cm) 29.5 WC - Nurse 2 - General Ulcer CM Notes Start: 05/26/19 13:36 Freq: Status: Active Protocol: Activity Type Activity Date Activity User E-Sign Co-Sign Detail Recorded Client Recorded Date Recorded By Document 05/26/19 13:54 [id number] 05/26/19 13:55 05/26/19 13:54 Wound Center Nurse 2 [Procedure/Treatment] #4- L DOUGLAS -Time 13:54 -Correct Patient Yes -Correct Side, Site, Position Yes -Correct Procedure Yes -Procedure Performed Yes -Type of Procedure Debridement -Clinical Debridement Subcutaneous -Post Debridement Size (cm) - Length 2.0 -Post Debridement Size (cm) - Width 0.9 -Post Debridement Size (cm) - Depth 0.1 -Total Square Cm 1.80 -Wound/Ulcer Outcome Not Healed -Ulcer Cleansing Rinsed/ Irrigated with Saline -Foul Odor after Cleansing No -Bioengineered Tissue No -Bleeding Controlled with Pressure -Offloading No -Treatment Response Procedure Tolerated Well [See Physician Procedure note for Specifics] Pain Scale: 0-10 Numeric [Pain] -Is Patient Pain Free? Yes Musculoskeletal: No Tenderness to Palpation of Joints or Extremities Neurological: Neuro grossly intact Psych/Mental Status: Normal Affect, Appropriate Debridement Note Post-Debridement Measurements/Treatment WC - Nurse 2 - General Ulcer CM Notes Start: 05/26/19 13:36 Freq: Status: Active Protocol: Activity Type Activity Date Activity User E-Sign Co-Sign Detail Recorded Client Recorded Date Recorded By Document 05/26/19 13:54 [id number] 05/26/19 13:55 [email or web address] 05/26/19 13:54 Wound Center Nurse 2 #4- L DOUGLAS -Time 13:54 -Correct Patient Yes -Correct Side, Site, Position Yes -Correct Procedure Yes -Procedure Performed Yes -Type of Procedure Debridement -Clinical Debridement Subcutaneous -Post Debridement Size (cm) - Length 2.0 -Post Debridement Size (cm) - Width 0.9 -Post Debridement Size (cm) - Depth 0.1 -Total Square Cm 1.80 -Wound/Ulcer Outcome Not Healed -Ulcer Cleansing Rinsed/ Irrigated with Saline -Foul Odor after Cleansing No -Bioengineered Tissue No -Bleeding Controlled with Pressure -Offloading No -Treatment Response Procedure Tolerated Well Pain Scale: 0-10 Numeric Is Patient Pain Free? Yes Wound debrided: Anterior lower leg ulcer Laterality: Left Type of Debridement: Excisional debridement Anesthesia Used: 5% Lidocaine Gel Depth: Down to and including healthy tissue, in the subcutaneous layer Percentage of wound debrided: 100 Instrument Used: 5mm curette Tissue Removed: Subcutaneous tissue and slough Severity: Limited To Skin Breakdown Amount of bleeding with debridement: Mild Bleeding Controlled with: Pressure Patient tolerated procedure well Assessment/Plan Assessment: 1. Ulcer of left lower extremity with fat layer exposed. 2. Bilateral lower extremity edema. 3. Peripheral vascular disease. 4. Dermatitis. 5. CHF (congestive heart failure) Plan: Patient was seen and evaluated in the wound center today. A subcutaneous debridement was performed, which patient tolerated well. Patient has edema +3-4 pitting bilaterally lower extremities. 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 Lac-Hydrin lotion is helping with the dry and flaky skin. Venous study on 10/20/18 showed Segmental valvular incompetence is noted within the greater saphenous veins bilaterally. Chronic venous changes are noted to the left greater saphenous vein. An incompetent certified technician specialist vein is noted in the right calf, located 22 cm proximal to the right medial malleolus. Arterial studies on 10/20/18 LBI= 1.19, RBI=1.04. Triphasic doppler waveforms are noted at the ankle level bilaterally. There is no evidence of significant arterial occlusive disease in the lower extremities bilaterally. He saw Dr. Bee last week and he will have him follow-up in 3 months. Instructed him that he needs to elevate feet at least twice a day for 30 minutes at time. Also encouraged patient to cut back on his sodium intake. Since he lives in assisted living, he does not have control over his diet. He states that he has not been wearing compression stockings because he does not have any. They were ordered when he was here in the spring. Will place him in double tubigrips for this week. Wound care will be collagen hydrogel to the left anterior ulcer covered by Adaptic. Will order Lac-Hydrin lotion to lower extremity dry flaky skin and feet bilaterally. Follow-up in 1 week. Code Visit [id number]: [id number] Huong subq tissue 20 sq cm/<
[2019-06-02 14:17] VITALS: RESP 16; TEMP 36.2; BMI 33.7
--- NOTE | 2019-06-02 16:49 | PCM.WC.PN ---
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 History of Wound: Patient comes in for evaluation of ulcers on his left lower leg. He also has significant edema and dry flaking skin. He lives in an assisted living facility, [place], that he needs to do his own wound care. Patient does have a history of CHF and has +3-+4 pitting edema of bilateral lower extremities. Venous study on 10/20/18 showed Segmental valvular incompetence is noted within the greater saphenous veins bilaterally. Chronic venous changes are noted to the left greater saphenous vein. An incompetent video producer vein is noted in the right calf, located 22 cm proximal to the right medial malleolus. Arterial studies on 10/20/18 LBI= 1.19, RBI=1.04. Triphasic doppler waveforms are noted at the ankle level bilaterally. There is no evidence of significant arterial occlusive disease in the lower extremities bilaterally. He saw Dr. Bee last week who will have him follow-up in 3 months. He does spend most of his day sitting in a chair with his legs dangling. He states he does not having any compression stockings, which were ordered when he was here in the spring. Left posterior leg cluster healed. Left anterior lower leg ulcer wound care is collagen hydrogel cover with adaptic. Lac hytrin lotion to bilateral lower legs and feet and tubigrip for compression. Denies fevers. Has a good appetite. Progress of Wound: Posterior left leg cluster ulcer is healed. Left anterior lower leg ulcer is improved. - Physical Exam Vital Signs Temp Pulse Resp BP 97.1 F L 52 L 16 94/57 L 06/02/19 14:17 05/26/19 13:36 06/02/19 14:17 05/26/19 13:36 General: Alert, Oriented x3 HEENT: Atraumatic Oral: Moist Mucosa Lungs: Normal air movement Cardiovascular: Regular rate Extremities: Capillary Refill Less than 3 Seconds, Diminished Peripheral Pulses, Edema Skin: Ulcer/ Wound - left anterior lower leg Wound Measurements and Assessment WC - Nurse 1 - General Ulcer Measurement Start: 05/26/19 13:36 Freq: Status: Active Protocol: Activity Type Activity Date Activity User E-Sign Co-Sign Detail Recorded Client Recorded Date Recorded By Document 06/02/19 14:17 [facility] [id number] 06/02/19 14:22 [facility] 06/02/19 14:17 Wound Center Nurse 1 [Ulcer Assessment] #4- L DOUGLAS -Combined with other wound No -Current Size (cm) - Length 1.3 -Current Size (cm) - Width 0.5 -Current Size (cm) - Depth 0.1 -Total Square Cm 0.65 -Photo Taken No -Epithelialization Medium 34-66% -Tunneling No -Undermining/Tunneling No -Circular Undermining No -Exudate Amt Small -Exudate Type Sanguineous -Wound Margin Flat & Intact -Granulation Amt Large (67-100%) -Granulation Quality Red -Slough/Fibrin Yes -Necrosis Amt Small (1-33%) -Necrotic Tissue Type Adherent Slough -Texture (Mer-wound Skin Appearance) Assessed, Scarring -Moisture (Mer-wound Skin Appearance Assessed,Dry/ ) Scaly -Color (Mer-wound Skin Appearance) Assessed, Hemosiderin Staining -Temperature (Mer-wound Skin No Abnormality Appearance) (Pt Warm) -Tenderness on Palpation (Mer-wound No Skin Appearance) -Ulcer Cleansing Rinsed/ Irrigated with Saline -Foul Odor after Cleansing No -Anesthetic Used 5% Lidocaine Gel [Edema Assessment] -Lower Limb Edema Present Yes -Left Calf (cm) 42 -Left Ankle (cm) 26.1 - Nurse 2 - General Ulcer CM Notes Start: 05/26/19 13:36 Freq: Status: Active Protocol: Activity Type Activity Date Activity User E-Sign Co-Sign Detail Recorded Client Recorded Date Recorded By Document 06/02/19 15:08 [id number] 06/02/19 15:09 06/02/19 15:08 Wound Center Nurse 2 [Procedure/Treatment] #4- L DOUGLAS -Time 15:08 -Correct Patient Yes -Correct Side, Site, Position Yes -Correct Procedure Yes -Procedure Performed Yes -Type of Procedure Debridement -Clinical Debridement Subcutaneous -Post Debridement Size (cm) - Length 1.5 -Post Debridement Size (cm) - Width 0.7 -Post Debridement Size (cm) - Depth 0.1 -Total Square Cm 1.05 -Wound/Ulcer Outcome Not Healed -Ulcer Cleansing Rinsed/ Irrigated with Saline -Foul Odor after Cleansing No -Bioengineered Tissue No -Bleeding Controlled with Pressure -Offloading No -Treatment Response Procedure Tolerated Well [See Physician Procedure note for Specifics] Pain Scale: 0-10 Numeric [Pain] -Is Patient Pain Free? Yes Musculoskeletal: No Tenderness to Palpation of Joints or Extremities Neurological: Neuro grossly intact Psych/Mental Status: Normal Affect, Appropriate Debridement Note Post-Debridement Measurements/Treatment WC - Nurse 2 - General Ulcer CM Notes Start: 05/26/19 13:36 Freq: Status: Active Protocol: Activity Type Activity Date Activity User E-Sign Co-Sign Detail Recorded Client Recorded Date Recorded By Document 05/26/19 13:54 [id number] 05/26/19 13:55 Document 06/02/19 15:08 [id number] 06/02/19 15:09 05/26/19 06/02/19 13:54 15:08 Wound Center Nurse 2 #4- L DOUGLAS -Time 13:54 15:08 -Correct Patient Yes Yes -Correct Side, Site, Position Yes Yes -Correct Procedure Yes Yes -Procedure Performed Yes Yes -Type of Procedure Debridement Debridement -Clinical Debridement Subcutaneous Subcutaneous -Post Debridement Size (cm) - Length 2.0 1.5 -Post Debridement Size (cm) - Width 0.9 0.7 -Post Debridement Size (cm) - Depth 0.1 0.1 -Total Square Cm 1.80 1.05 -Wound/Ulcer Outcome Not Healed Not Healed -Ulcer Cleansing Rinsed/ Rinsed/ Irrigated with Irrigated with Saline Saline -Foul Odor after Cleansing No No -Bioengineered Tissue No No -Bleeding Controlled with Pressure Pressure -Offloading No No -Treatment Response Procedure Procedure Tolerated Well Tolerated Well Pain Scale: 0-10 Numeric Is Patient Pain Free? Yes Yes Wound debrided: anterior lower leg Laterality: Left Type of Debridement: Excisional debridement Anesthesia Used: 5% Lidocaine Gel Depth: Down to and including healthy tissue, in the subcutaneous layer Percentage of wound debrided: 100 Instrument Used: 5mm curette Tissue Removed: subcutaneous tissue and slough Severity: Fat Layer Exposed Amount of bleeding with debridement: Mild Bleeding Controlled with: Pressure, Compression and gauze Patient tolerated procedure well Assessment/Plan Assessment: 1. Ulcer of left lower extremity with fat layer exposed. 2. Bilateral lower extremity edema. 3. Peripheral vascular disease. 4. Dermatitis. 5. CHF (congestive heart failure) Plan: Patient was seen and evaluated in the wound center today. A subcutaneous debridement was performed, which patient tolerated well. Patient has edema +3-4 pitting bilaterally lower extremities. 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 Lac-Hydrin lotion is helping with the dry and flaky skin. Venous study on 10/20/18 showed Segmental valvular incompetence is noted within the greater saphenous veins bilaterally. Chronic venous changes are noted to the left greater saphenous vein. An incompetent video producer vein is noted in the right calf, located 22 cm proximal to the right medial malleolus. Arterial studies on 10/20/18 LBI= 1.19, RBI=1.04. Triphasic doppler waveforms are noted at the ankle level bilaterally. There is no evidence of significant arterial occlusive disease in the lower extremities bilaterally. He saw Dr. Bee last week and he will have him follow-up in 3 months. Instructed him that he needs to elevate feet at least twice a day for 30 minutes at time. Also encouraged patient to cut back on his sodium intake. Since he lives in assisted living, he does not have control over his diet. He states that he has not been wearing compression stockings because he does not have any. They were ordered when he was here in the spring. Will place him in double tubigrips for this week. Wound care will be collagen hydrogel to the left anterior ulcer covered by Adaptic. Will order Lac-Hydrin lotion to lower extremity dry flaky skin and feet bilaterally. Follow-up in 1 week. Code Visit 111xxx-[id number]: [id number] Huong subq tissue 20 sq cm/<
[2019-06-09 13:24] VITALS: BP 92/47; PULSE 54; RESP 18; TEMP 36.1; BMI 33.7
--- NOTE | 2019-06-09 16:20 | PCM.WC.PN ---
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 Current Visit: Yes Code(s): L97.922 - Non-pressure chronic ulcer of unspecified part of left lower leg with fat layer exposed (2) Peripheral vascular disease Status: Chronic Current Visit: Yes Code(s): I73.9 - Peripheral vascular disease, unspecified (3) Bilateral lower extremity edema Status: Chronic Current Visit: Yes Code(s): R60.0 - Localized edema (4) Dermatitis Status: Chronic Current Visit: Yes Code(s): L30.9 - Dermatitis, unspecified Type of Wound Date of Service: 06/09/19 Chief Complaint: Bilateral lower extremity edema with opened areas on left anterior lower leg and a cluster of opened areas on left posterior leg. History of Wound: Patient comes in for evaluation of ulcers on his left lower leg. He also has significant edema and dry flaking skin. He lives in an assisted living facility, [place], that he needs to do his own wound care. Patient does have a history of CHF and has +3-+4 pitting edema of bilateral lower extremities. Venous study on 10/20/18 showed Segmental valvular incompetence is noted within the greater saphenous veins bilaterally. Chronic venous changes are noted to the left greater saphenous vein. 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 Arterial studies on 10/20/18 LBI= 1.19, RBI=1.04. Triphasic doppler waveforms are noted at the ankle level bilaterally. There is no evidence of significant arterial occlusive disease in the lower extremities bilaterally. He saw Dr. Bee last week who will have him follow-up in 3 months. He does spend most of his day sitting in a chair with his legs dangling. He states he does not having any compression stockings, which were ordered when he was here in the spring. Left posterior leg cluster healed. Left anterior lower leg ulcer wound care is collagen hydrogel cover with adaptic. Lac hytrin lotion to bilateral lower legs and feet and tubigrip for compression. Denies fevers. Has a good appetite. Progress of Wound: Posterior left leg cluster ulcer is healed. Left anterior lower leg ulcer is improved. - Physical Exam Vital Signs Temp Pulse Resp BP 97 F L 54 L 18 92/47 L 06/09/19 13:24 06/09/19 13:24 06/09/19 13:24 06/09/19 13:24 General: Alert, Oriented x3, Cooperative HEENT: Atraumatic Oral: Moist Mucosa Lungs: Normal air movement Cardiovascular: Regular rate Extremities: Capillary Refill Less than 3 Seconds, Diminished Peripheral Pulses, Edema Skin: Ulcer/ Wound - Left lateral leg ulcer Wound Measurements and Assessment WC - Nurse 1 - General Ulcer Measurement Start: 05/26/19 13:36 Freq: Status: Active Protocol: Activity Type Activity Date Activity User E-Sign Co-Sign Detail Recorded Client Recorded Date Recorded By Document 06/09/19 13:24 DL [id number] 06/09/19 13:29 DL 06/09/19 13:24 Wound Center Nurse 1 [Ulcer Assessment] #4- L DOUGLAS -Current Size (cm) - Length 0.4 -Current Size (cm) - Width 0.3 -Current Size (cm) - Depth 0.1 -Total Square Cm 0.12 -Photo Taken No -Exudate Amt None Present -Wound Margin Flat & Intact -Granulation Amt None Present (0 %) -Necrosis Amt Small (1-33%) -Necrotic Tissue Type Adherent Slough -Structure Exposed N/A -Texture (Mer-wound Skin Appearance) Scarring -Moisture (Mer-wound Skin Appearance Dry/Scaly ) -Color (Mer-wound Skin Appearance) Hemosiderin Staining -Temperature (Mer-wound Skin No Abnormality Appearance) (Pt Warm) -Tenderness on Palpation (Mer-wound No Skin Appearance) -Ulcer Cleansing Wound Cleanser -Anesthetic Used 4% Lidocaine Solution [Edema Assessment] -Left Calf (cm) 40.8 -Left Ankle (cm) 26.4 - Nurse 2 - General Ulcer CM Notes Start: 05/26/19 13:36 Freq: Status: Active Protocol: Activity Type Activity Date Activity User E-Sign Co-Sign Detail Recorded Client Recorded Date Recorded By Document 06/09/19 13:54 [id number] 06/09/19 13:55 06/09/19 13:54 Wound Center Nurse 2 [Procedure/Treatment] #4- L DOUGLAS -Time 13:54 -Correct Patient Yes -Correct Side, Site, Position Yes -Correct Procedure Yes -Procedure Performed Yes -Type of Procedure Debridement -Clinical Debridement Subcutaneous -Post Debridement Size (cm) - Length 0.5 -Post Debridement Size (cm) - Width 0.3 -Post Debridement Size (cm) - Depth 0.2 -Total Square Cm 0.15 -Wound/Ulcer Outcome Not Healed -Ulcer Cleansing Rinsed/ Irrigated with Saline -Foul Odor after Cleansing No -Bioengineered Tissue No -Bleeding Controlled with Pressure -Offloading No -Treatment Response Procedure Tolerated Well [See Physician Procedure note for Specifics] Pain Scale: 0-10 Numeric [Pain] -Is Patient Pain Free? Yes Musculoskeletal: No Muscle Wasting Neurological: Neuro grossly intact Psych/Mental Status: Normal Affect, Appropriate Debridement Note Post-Debridement Measurements/Treatment WC - Nurse 2 - General Ulcer CM Notes Start: 05/26/19 13:36 Freq: Status: Active Protocol: Activity Type Activity Date Activity User E-Sign Co-Sign Detail Recorded Client Recorded Date Recorded By Document 05/26/19 13:54 [id number] 05/26/19 13:55 Document 06/02/19 15:08 [id number] 06/02/19 15:09 Document 06/09/19 13:54 [id number] 06/09/19 13:55 05/26/19 06/02/19 06/09/19 13:54 15:08 13:54 Wound Center Nurse 2 #4- L DOUGLAS -Time 13:54 15:08 13:54 -Correct Patient Yes Yes Yes -Correct Side, Site, Position Yes Yes Yes -Correct Procedure Yes Yes Yes -Procedure Performed Yes Yes Yes -Type of Procedure Debridement Debridement Debridement -Clinical Debridement Subcutaneous Subcutaneous Subcutaneous -Post Debridement Size (cm) - Length 2.0 1.5 0.5 -Post Debridement Size (cm) - Width 0.9 0.7 0.3 -Post Debridement Size (cm) - Depth 0.1 0.1 0.2 -Total Square Cm 1.80 1.05 0.15 -Wound/Ulcer Outcome Not Healed Not Healed Not Healed -Ulcer Cleansing Rinsed/ Rinsed/ Rinsed/ Irrigated with Irrigated with Irrigated with Saline Saline Saline -Foul Odor after Cleansing No No No -Bioengineered Tissue No No No -Bleeding Controlled with Pressure Pressure Pressure -Offloading No No No -Treatment Response Procedure Procedure Procedure Tolerated Well Tolerated Well Tolerated Well Pain Scale: 0-10 Numeric Is Patient Pain Free? Yes Yes Yes Wound debrided: Lateral leg ulcer Laterality: Left Type of Debridement: Excisional debridement Anesthesia Used: 5% Lidocaine Gel Depth: Down to and including healthy tissue, in the subcutaneous layer Percentage of wound debrided: 100 Instrument Used: 5mm curette Tissue Removed: Subcutaneous tissue and slough Severity: Fat Layer Exposed Amount of bleeding with debridement: Mild Bleeding Controlled with: Pressure Patient tolerated procedure well Assessment/Plan Active Problems Peripheral vascular disease (Chronic) Bilateral lower extremity edema (Chronic) 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 Ulcer of left lower extremity with fat layer exposed. 2. Bilateral lower extremity edema. 3. Peripheral vascular disease. 4. Dermatitis. 5. CHF (congestive heart failure) Plan: Patient was seen and evaluated in the wound center today. A subcutaneous debridement was performed, which patient tolerated well. Patient has edema +3-4 pitting bilaterally lower extremities. 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 Lac-Hydrin lotion is helping with the dry and flaky skin. Venous study on 10/20/18 showed Segmental valvular incompetence is noted within the greater saphenous veins bilaterally. Chronic venous changes are noted to the left greater saphenous vein. 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 Arterial studies on 10/20/18 LBI= 1.19, RBI=1.04. Triphasic doppler waveforms are noted at the ankle level bilaterally. There is no evidence of significant arterial occlusive disease in the lower extremities bilaterally. He saw Dr. Bee last week and he will have him follow-up in 3 months. Instructed him that he needs to elevate feet at least twice a day for 30 minutes at time. Also encouraged patient to cut back on his sodium intake. Since he lives in assisted living, he does not have control over his diet. He states that he has not been wearing compression stockings because he does not have any. They were ordered when he was here in the spring. Will place him in double tubigrips for this week. Wound care will be collagen hydrogel to the left anterior ulcer covered by Adaptic. Will order Lac-Hydrin lotion to lower extremity dry flaky skin and feet bilaterally. Follow-up in 2 weeks, due to the holiday. Code Visit [id number]: [id number] Huong subq tissue 20 sq cm/<
== END 2019-06-23 23:59 ==
LOC: WC 13:30
PROVIDERS: Family Provider Family Medicine; PCP Family Medicine; Visit Provider Nurse Practitioner Family
DX: I73.9 Peripheral vascular disease, unspecified (principal); L97.822 Non-pressure chronic ulcer of other part of left lower leg with fat layer exposed; L30.9 Dermatitis, unspecified; R60.0 Localized edema; I50.9 Heart failure, unspecified; L97.821 Non-pressure chronic ulcer of other part of left lower leg limited to breakdown of skin
CPT/HCPCS: 11042

== ENCOUNTER 2019-06-30 13:53 | Outpatient (RCR) | payer OTHER, SELFPAY ==
[2019-06-24 00:53] VITALS: BP 92/47; PULSE 54; RESP 18; TEMP 36.1
[2019-06-30 13:34] VITALS: BP 112/65; PULSE 62; RESP 16; BMI 33.7
--- NOTE | 2019-06-30 13:48 | PCM.WC.PN ---
(1) Ulcer of left lower extremity with fat layer exposed Status: Resolved Code(s): L97.922 - Non-pressure chronic ulcer of unspecified part of left lower leg with fat layer exposed (2) Dermatitis Status: Resolved Code(s): L30.9 - Dermatitis, unspecified (3) Bilateral lower extremity edema Status: Chronic Code(s): R60.0 - Localized edema (4) Peripheral vascular disease Status: Chronic Code(s): I73.9 - Peripheral vascular disease, unspecified Type of Wound Date of Service: 06/30/19 Chief Complaint: Bilateral lower extremity edema with opened areas on left anterior lower leg and a cluster of opened areas on left posterior leg. History of Wound: Patient comes in for evaluation of ulcers on his left lower leg. He also has significant edema and dry flaking skin. He lives in an assisted living facility, [place], that he needs to do his own wound care. Patient does have a history of CHF and has +3-+4 pitting edema of bilateral lower extremities. Venous study on 10/20/18 showed Segmental valvular incompetence is noted within the greater saphenous veins bilaterally. Chronic venous changes are noted to the left greater saphenous vein. 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 Arterial studies on 10/20/18 LBI= 1.19, RBI=1.04. Triphasic doppler waveforms are noted at the ankle level bilaterally. There is no evidence of significant arterial occlusive disease in the lower extremities bilaterally. He saw Dr. Bee last week who will have him follow-up in 3 months. He does spend most of his day sitting in a chair with his legs dangling. He states he does not having any compression stockings, which were ordered when he was here in the spring. Left posterior leg cluster healed. Left anterior lower leg ulcer wound care is collagen hydrogel cover with adaptic. Lac hytrin lotion to bilateral lower legs and feet and tubigrip for compression. Denies fevers. Has a good appetite. Progress of Wound: Former patient of JOSÉ MIGUEL Munoz who is transferred to [facility] d/t providers' schedule change. Posterior left leg cluster ulcer is healed. Left anterior lower leg ulcer is healed. - Physical Exam Vital Signs Temp Pulse Resp BP 97 F L 62 16 112/65 06/24/19 00:53 06/30/19 13:34 06/30/19 13:34 06/30/19 13:34 General: Alert, Cooperative, No apparent distress HEENT: Atraumatic, EOMI, Normocephalic Oral: Moist Mucosa Neck: Supple, No JVD, Trachea Midline Cardiovascular: Regular rate Extremities: No clubbing, No cyanosis, Capillary Refill Less than 3 Seconds, No Calf Tenderness, Diminished Peripheral Pulses, Edema - Right leg in double layer tubigrip. 2+ pitting edema in BLE. Skin: No rashes, No breakdown - Dry, scaly skin of LLE is resolved. Skin appears well-hydrated. LLE ulceration is healed. Wound Measurements and Assessment WC - Nurse 1 - General Ulcer Measurement Start: 06/30/19 13:34 Freq: Status: Active Protocol: Activity Type Activity Date Activity User E-Sign Co-Sign Detail Recorded Client Recorded Date Recorded By Document 06/30/19 13:34 [facility] [id number] 06/30/19 13:37 [facility] 06/30/19 13:34 Wound Center Nurse 1 [Ulcer Assessment] #4- L DOUGLAS -Combined with other wound No -Current Size (cm) - Length 0 -Current Size (cm) - Width 0 -Current Size (cm) - Depth 0 -Total Square Cm 0 -Date of Last Picture (Recall this 06/30/19 field) -Epithelialization Large 67-100% -Tunneling No -Undermining/Tunneling No -Circular Undermining No -Texture (Mer-wound Skin Appearance) Assessed -Moisture (Mer-wound Skin Appearance Assessed ) -Color (Mer-wound Skin Appearance) Assessed [Edema Assessment] -Lower Limb Edema Present Yes -Left Calf (cm) 40 -Left Ankle (cm) 29.4 Psych/Mental Status: Normal Affect, Appropriate Assessment/Plan Assessment: 1. Ulcer of left lower extremity with fat layer exposed- healed 06/30/2019. 2. Bilateral lower extremity edema. 3. Peripheral vascular disease. 4. Dermatitis - resolved 06/30/2019. 5. CHF (congestive heart failure) Plan: Patient was seen and evaluated in the Wound Healing Center today. Patient has 2+ pitting bilateral lower extremity edema. Continue with use of double layer tubigrips or compression stockings for lower extremity edema. Keep feet elevated when seated, as much as possible, at least 30 minutes a day as discussed with Dr. Bee (vascular). Limit sodium in diet where possible. Follow-up with Dr. Bee as directed. Avoid long periods of standing, avoid dangling legs. Lac-Hydrin lotion has resolved the dry and flaky skin of left lower extremity. Continue to use Lac-Hydrin PRN and as directed for dry, flaking skin of lower extremities. Otherwise use OTC topical hydrating lotion such as Aquaphor daily to bilateral lower extremities. Due to resolution of wounds, patient is discharged from the Wound Healing Center today. He is encouraged to return if new wounds develop. Code Visit Office Visits / Consults: [id number] OV L3 Est
== END 2019-07-24 23:59 ==
LOC: WC 13:53
PROVIDERS: Family Provider Family Medicine; PCP Family Medicine; Visit Provider Nurse Practitioner Family
DX: Z09 Encounter for follow-up examination after completed treatment for conditions other than malignant neoplasm (principal); I73.9 Peripheral vascular disease, unspecified; R60.0 Localized edema; I50.9 Heart failure, unspecified; Z79.82 Long term (current) use of aspirin; Z79.899 Other long term (current) drug therapy
CPT/HCPCS: 99213; G0463